=== PATIENT | female | born 1960 ===

== ENCOUNTER 2020-09-02 02:16 | Inpatient (IN) | payer MEDICARE ==
[2020-09-02] MEDS ORDERED: HALOPERIDOL LACTATE 5 MG/1 ML INJ IM PRN (03:22)
[2020-09-02] MEDS ORDERED: LORazepam 2 MG/ML VIAL IM PRN ×2 (03:23→10:00)
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
[2020-09-02] MEDS ORDERED: QUEtiapine 25 MG TAB PO SCH (10:00)
--- NOTE | 2020-09-02 10:20 | History and Physical Report ---
GP History & Physical - History of Present Illness Date of Examination: 09/02/20 Patient Problems: Current Active Problems Schizoaffective disorder, bipolar type (Acute) Medications and Allergies Allergies Allergy/AdvReac Type Severity Reaction Status Date / Time No Known Drug Allergies Allergy Unknown Verified 09/02/20 03:00 Home Medications Medication Instructions Recorded Confirmed Last Taken Type Atorvastatin 10 mg PO DAILY 09/02/20 09/02/20 Unknown History Divalproex ER [DepaKOTE ER] 500 mg PO BID 09/02/20 09/02/20 Unknown History LORazepam [Lorazepam] 2 mg PO TID PRN 09/02/20 09/02/20 Unknown History Levothyroxine [Synthroid] 75 mcg PO QAM 09/02/20 09/02/20 Unknown History Sodium Chloride 1 gm PO DAILY 09/02/20 09/02/20 Unknown History amLODIPine [Norvasc] 5 mg PO DAILY 09/02/20 09/02/20 Unknown History haloperidoL [Haldol] 5 mg PO BID 09/02/20 09/02/20 Unknown History risperiDONE [Risperdal] 3 mg PO BID 09/02/20 09/02/20 Unknown History Active Meds: Active Medications Haloperidol (Haloperidol 2 Mg Tab) 2 mg PO BID [facility] Haloperidol Lactate (Haloperidol Lactate 5 Mg/1 Ml Inj) 5 mg IM Q6H PRN PRN Reason: Agitation Lorazepam (Lorazepam 2 Mg/Ml Vial) 1 mg IM Q12HR PRN PRN Reason: Anxiety Nicotine (Nicotine 21 Mg/24 Hr Patch) 21 mg TD QDAY [facility] Quetiapine Fumarate (Quetiapine 25 Mg Tab) 100 mg PO BID [facility] Trazodone HCl (Trazodone 50 Mg Tab) 50 mg PO QHS [facility] Valproic Acid (Valproic Acid 250 Mg/5 Ml Oral Liqd) 250 mg PO BID [facility] Results - Results Labs/Vitals: Laboratory Last Values POC Glucose 92 mg/dL (70-105) 09/02/20 04:57 Last Vital Signs Temp 98.4 F 09/02/20 04:55 Pulse 82 09/02/20 04:55 Resp 20 09/02/20 04:55 BP 156/86 09/02/20 04:55 Pulse Ox 93 09/02/20 04:55 Physical Examination - Constitutional Vitals: Vital Signs Temp Pulse Resp BP Pulse Ox 98.4 F 82 20 156/86 93 09/02/20 04:55 09/02/20 04:55 09/02/20 04:55 09/02/20 04:55 09/02/20 04:55 Temperature -Last 24 Hours Temperature 98.4 F Mental Status Exam - Vital signs Last Vital Signs Temp 98.4 F 09/02/20 04:55 Pulse 82 09/02/20 04:55 Resp 20 09/02/20 04:55 BP 156/86 09/02/20 04:55 Pulse Ox 93 09/02/20 04:55 Physician Certification - Certification Statement Physician Certification Statement: This is an acknowledgement statement that EMRE MOONEY is a 60 year old F who requires inpatient psychiatric admission for treatment which could reasonably be expected to improve the patient's condition for Estimated period of time patient will need to remain in the hospital: [ ] Plan for post-hospital care: [ ]
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
[2020-09-02] MEDS: HALOPERIDOL 2 MG TAB PO SCH ×3 (11:53→21:19)
[2020-09-02] MEDS: VALPROIC ACID 250 MG/5 ML ORAL LIQD PO SCH ×3 (12:08→21:18)
[2020-09-02] MEDS: NICOTINE 21 MG/24 HR PATCH TD SCH (12:08)
[2020-09-02] MEDS: traZODone 50 MG TAB PO SCH ×2 (21:03→21:19)
[2020-09-02] MEDS: QUEtiapine 100 MG TAB PO SCH (21:03)
--- NOTE | 2020-09-03 07:44 | Progress Note ---
Subjective Date of service: 09/03/20 Principal diagnosis: Schizoaffective disorder, bipolar type Subjective Comment: Psych Nurse: pt spent the evening in her room, came out for snack and went back to room afterward, pt is labile, irritable, pressured speech, disorganized observed talking to herself, she refused her medication, no distress noted, will continue to monitor for safety. Psych Progress MIss Fan seen in breakfast room, responded nicely to greetings but became irritably almost immediately, patient states she does not like to use spoon to eat, she would prefer a fork. Informed patient, spoon is preferred here over safety reasons. Also enouraged patients to take medicine, patient states she wont take it because she does not want me to black and white her out. She then became angry and started hitting her head with her hands before calming then. Patient then says she joseph take her medications. Reason for continuing acute inpatient psychiatric hospitalization; Acute manic phase, medication non compliant, needs stabilization. REVIEW OF SYSTEMS ROS cannot be reliably obtained from the patient due to her confusion. MENTAL STATUS EXAMINATION General Appearance and Behavior: Age appropriate, good hygiene, not wearing appropriate clothes, good eye contact, cooperative polite with questioning. Cooperation: Participating/engaged Psychomotor Behavior: Psychomotor agitation Mood: sad Affect and affective range: labile and dysthymic. Thought Process:Circumstantial, Illogical, Thought Content: Flight of ideas, Illogical, Grandiose, Speech: pressured, loud volume at times Intellectual Functioning: Average Suicidal Ideation: Denies SI Homicidal Ideation: Denies HIl Impulse Control: Impaired Insight and Judgment: Limited insight and judgment Memory: Normal, Attention: Divided attention impaired Orientation: Alert, oriented, Diagnoses: Assessment and Plan - Psychiatric problem (1) Schizoaffective disorder, bipolar type Current Visit: Yes Status: Acute F25.0 Treatment Plan Concern patient high dose Valproate causing her to be hyponatremic. Joseph start low dose, continue haldol and add Seroquel. Patient admitted for inpatient psychiatric evaluation, medication adjustment and close monitoring The patient's behavior, mood, sleep and appetite will be closely monitored. Patient enrolled in individual and group therapeutic sessions and encouraged to attend. Patient provided with a safe and structured environment. Patient's physical health needs will be addressed by the Hospitalist. Hospitalist Consulted Labs including CBC, CMP, Lipid profile and Hemoglobin A1C levels ordered for baseline reference Social Assessment will be completed and the Guard Supervisor will work with patient and family to ensure a suitable and safe disposition Medication adjustment will be made as clinically indicated Usual Wellness Jehovah'S Witness/Preservation: - Start Trazodone 50 mg po QHS & 50 mg po QHS PRN between 10 PM & 2 AM for insomnia - Start Melatonin 5 mg po QHS to promote circadian rhythm - Start [place]-3 for brain health, reduce impulsivity, and as adjunctive treatment for mood disorder, continue upon discharge given overall benefits. - Start B1 prophylaxis with 200 mg po for 5 days The patient agreed on the treatment plan, understood the risk, benefit, alternative treatment, potential consequence of no treatment, and gave informed consent. Initial Certification Inpatient psych services: I certify that the inpatient psychiatric services are required for treatment that could reasonably be expected to improve the patient's condition. Estimated days: 6 Post hospital care: primary care provider, psychiatric provider Assessment and Plan - Patient Problems (1) Schizoaffective disorder, bipolar type Current Visit: Yes Status: Acute Medications and Allergies Allergies Allergy/AdvReac Type Severity Reaction Status Date / Time No Known Drug Allergies Allergy Unknown Verified 09/02/20 03:00 Home Medications Medication Instructions Recorded Confirmed Last Taken Type Atorvastatin 10 mg PO DAILY 09/02/20 09/02/20 Unknown History Divalproex ER [DepaKOTE ER] 500 mg PO BID 09/02/20 09/02/20 Unknown History LORazepam [Lorazepam] 2 mg PO TID PRN 09/02/20 09/02/20 Unknown History Levothyroxine [Synthroid] 75 mcg PO QAM 09/02/20 09/02/20 Unknown History Sodium Chloride 1 gm PO DAILY 09/02/20 09/02/20 Unknown History amLODIPine [Norvasc] 5 mg PO DAILY 09/02/20 09/02/20 Unknown History haloperidoL [Haldol] 5 mg PO BID 09/02/20 09/02/20 Unknown History risperiDONE [Risperdal] 3 mg PO BID 09/02/20 09/02/20 Unknown History Active Meds: Active Medications Haloperidol (Haloperidol 2 Mg Tab) 2 mg PO BID [facility] Last Admin: 09/02/20 21:19 Dose: Not Given Documented by: Haloperidol Lactate (Haloperidol Lactate 5 Mg/1 Ml Inj) 5 mg IM Q6H PRN PRN Reason: Agitation Lorazepam (Lorazepam 2 Mg/Ml Vial) 1 mg IM Q12HR PRN PRN Reason: Anxiety Nicotine (Nicotine 21 Mg/24 Hr Patch) 21 mg TD QDAY [facility] Last Admin: 09/02/20 12:08 Dose: Not Given Documented by: Quetiapine Fumarate (Quetiapine 100 Mg Tab) 100 mg PO BID [facility] Last Admin: 09/02/20 21:03 Dose: 100 mg Documented by: Trazodone HCl (Trazodone 50 Mg Tab) 50 mg PO QHS [facility] Last Admin: 09/02/20 21:19 Dose: Not Given Documented by: Valproic Acid (Valproic Acid 250 Mg/5 Ml Oral Liqd) 250 mg PO BID [facility] Last Admin: 09/02/20 21:18 Dose: Not Given Documented by: Results - Results Labs/Vitals: Laboratory Last Values POC Glucose 92 mg/dL (70-105) 09/02/20 04:57 Last Vital Signs Temp 98.4 F 09/02/20 04:55 Pulse 82 09/02/20 04:55 Resp 20 09/02/20 04:55 BP 156/86 09/02/20 04:55 Pulse Ox 93 09/02/20 04:55
[2020-09-03] MEDS: QUEtiapine 100 MG TAB PO SCH ×2 (09:27→21:04)
[2020-09-03] MEDS: HALOPERIDOL 2 MG TAB PO SCH ×2 (09:28→21:04)
[2020-09-03] MEDS: VALPROIC ACID 250 MG/5 ML ORAL LIQD PO SCH ×2 (09:31→21:03)
[2020-09-03] MEDS: NICOTINE 21 MG/24 HR PATCH TD SCH (09:35)
--- NOTE | 2020-09-03 11:09 | Consultation ---
History of Present Illness - Reason for Consult Consult date: 09/03/20 medical consult Requesting physician: RAUL FARIA - History of Present Illness 60-year-old female patient with significant past medical history of schizophrenia was admitted to [facility] psych unit with history of medical noncompliance and disruptive behavior with acute psychosis, hospitalist service was requested for medical consult. Patient has history medical of hypertension, dyslipidemia and hypothyroidism on appropriate medications When I went to see and evaluate the patient, patient was very explosive, loud, cursing And fell down on the floor and rolling in the hallway. Unable to get any history,Unable to examine the patient Psych unit personal came immediately to calm her Patient is very agitated aggressive and psychotic Past History Past Medical History: hypertension, hyperlipidemia, hypothyroidism, other (Schizophrenia) Past Surgical History: No surgical history Social history: smoking. denies: alcohol abuse, prescription drug abuse Family history: no significant family history Medications and Allergies Allergies Allergy/AdvReac Type Severity Reaction Status Date / Time No Known Drug Allergies Allergy Unknown Verified 09/02/20 03:00 Home Medications Medication Instructions Recorded Confirmed Last Taken Type Atorvastatin 10 mg PO DAILY 09/02/20 09/02/20 Unknown History Divalproex ER [DepaKOTE ER] 500 mg PO BID 09/02/20 09/02/20 Unknown History LORazepam [Lorazepam] 2 mg PO TID PRN 09/02/20 09/02/20 Unknown History Levothyroxine [Synthroid] 75 mcg PO QAM 09/02/20 09/02/20 Unknown History Sodium Chloride 1 gm PO DAILY 09/02/20 09/02/20 Unknown History amLODIPine [Norvasc] 5 mg PO DAILY 09/02/20 09/02/20 Unknown History haloperidoL [Haldol] 5 mg PO BID 09/02/20 09/02/20 Unknown History risperiDONE [Risperdal] 3 mg PO BID 09/02/20 09/02/20 Unknown History Active Meds: Active Medications Haloperidol (Haloperidol 2 Mg Tab) 2 mg PO BID [facility] Last Admin: 09/03/20 09:28 Dose: 2 mg Documented by: Haloperidol Lactate (Haloperidol Lactate 5 Mg/1 Ml Inj) 5 mg IM Q6H PRN PRN Reason: Agitation Lorazepam (Lorazepam 2 Mg/Ml Vial) 1 mg IM Q12HR PRN PRN Reason: Anxiety Nicotine (Nicotine 21 Mg/24 Hr Patch) 21 mg TD QDAY [facility] Last Admin: 09/03/20 09:35 Dose: Not Given Documented by: Quetiapine Fumarate (Quetiapine 100 Mg Tab) 100 mg PO BID [facility] Last Admin: 09/03/20 09:27 Dose: 100 mg Documented by: Trazodone HCl (Trazodone 50 Mg Tab) 50 mg PO QHS [facility] Last Admin: 09/02/20 21:19 Dose: Not Given Documented by: Valproic Acid (Valproic Acid 250 Mg/5 Ml Oral Liqd) 250 mg PO BID [facility] Last Admin: 09/03/20 09:31 Dose: 250 mg Documented by: Review of Systems ROS unobtainable: due to mental status Exam - Physical Exam Narrative exam: Patient is very agitated and aggressive Loud and psychotic, explosive behavior, cursing Unable to perform complete physical exam - Constitutional Vitals: Temp Pulse Resp BP Pulse Ox 97.5 F L 67 18 135/87 95 09/03/20 08:38 09/03/20 08:38 09/03/20 08:38 09/03/20 08:38 09/03/20 08:38 Assessment and Plan --Schizophrenia/schizoaffective disorder; Management per psych --Hypothyroidism; Will resume home Synthroid medication And supportive care --Hypertension; Moderate control, resume amlodipine As needed oral hydralazine --Dyslipidemia; Will resume patient's home statin Low-cholesterol diet --DVT prophylaxis; SCDs While resting --Full CODE STATUS We will closely monitor the patient and adjust the management as needed Plan of care reviewed with the patient and her nurse Thank you for this consult, we will follow the patient along with you as needed Call us with questions and concerns
[2020-09-03] MEDS: traZODone 50 MG TAB PO SCH (21:04)
[2020-09-04 06:36] LABS: Basophils # (Auto) 0.1 K/mm3 (0.0-0.1); Basophils % (Auto) 1.6 % (0.0-1.8); Eosinophils # (Auto) 0.3 K/mm3 (0.0-0.4); Hematocrit 36.6 % (30.3-42.9); Hemoglobin 12.3 gm/dl (10.1-14.3); Lymphocytes % (Auto) 24.7 % (13.4-35.0); Mean Corpuscular HGB Conc 34 % (30-34); Mean Corpuscular Volume 85 fl (79-97); Monocytes # (Auto) 0.5 K/mm3 (0.0-0.8); Monocytes % (Auto) 6.7 % (0.0-7.3); Platelet Count 401 K/mm3 (140-440); Red Blood Count 4.32 M/mm3 (3.65-5.03); Red Cell Distribution Width 18.9 % (13.2-15.2)
[2020-09-04 06:59] LABS: Alanine Aminotransferase 16 units/L (7-56); Albumin 4.5 g/dL (3.9-5); BUN/Creatinine Ratio 19; Blood Urea Nitrogen 15 mg/dL (7-17); Calcium 8.9 mg/dL (8.4-10.2); Chol/HDL Ratio 2.22 %; HDL Cholesterol 85 mg/dL (40-59); Hemolysis Index 1; LDL Cholesterol,Direct 98 mg/dL (50-130)
--- NOTE | 2020-09-04 08:10 | Progress Note ---
Subjective Date of service: 09/04/20 Principal diagnosis: Schizoaffective disorder, bipolar type Subjective Comment: Per Nurse Note: During the evening the patient went between her room and the activity room. The other patient's doors had to be locked due to the patient going into other's rooms and taking their things. She talked to herself in her room and even when she was with others. She was labile and irritable. She presents as inpatient with multiple requests. She had a good appetite and was medication compliant. She wanted the heat turned up in her room and when staff explained to her that we had no control over the temp she became angry and cursed staff. Overnight the patient rested quietly until 0100. She was awake off and on and in and out of her room afterward. She requested coffee several times and has to be reoriented that she will have that after 7 am. Will continue to monitor patient for safety. The patient was seen today, she says she slept okay. Although the patient had some behavioral issues reported by nurse,The patient says her mood is "pretty g ood." She denies SI/HI or hallucinations of any kind. Reason for continuing acute inpatient psychiatric hospitalization: Acute manic phase, responding to internal stimuli, irritable, medication non compliant, needs stabilization. REVIEW OF SYSTEMS Constitutional: Negative for weight loss ENT: Negative for stridor Respiratory: Negative for cough or hemoptysis All other systems reviewed and are negative MENTAL STATUS EXAMINATION General Appearance and Behavior: Age appropriate, good hygiene, not wearing appropriate clothes, good eye contact, cooperative polite with questioning. Cooperation: Participating/engaged Psychomotor Behavior: Psychomotor agitation Mood: sad Affect and affective range: labile and dysthymic. Thought Process:Circumstantial, Illogical, Thought Content: Flight of ideas, Illogical, Grandiose, Speech: pressured, loud volume at times Intellectual Functioning: Average Suicidal Ideation: Denies SI Homicidal Ideation: Denies HIl Impulse Control: Impaired Insight and Judgment: Limited insight and judgment Memory: Normal, Attention: Divided attention impaired Orientation: Alert, oriented, Diagnoses: Assessment and Plan (1) Schizoaffective disorder, bipolar type Current Visit: Yes Status: Acute F25.0 Treatment Plan Patient admitted for inpatient psychiatric evaluation, medication adjustment and close monitoring The patient's behavior, mood, sleep and appetite will be closely monitored. Patient enrolled in individual and group therapeutic sessions and encouraged to attend. Patient provided with a safe and structured environment. Patient's physical health needs will be addressed by the Hospitalist. Hospitalist Consulted Labs including CBC, CMP, Lipid profile and Hemoglobin A1C levels ordered for baseline reference Valproic level 09/05 Social Assessment will be completed and the Social Insurance Adviser will work with patient and family to ensure a suitable and safe disposition Medication adjustment will be made as clinically indicated d/c home xanax, Start Klonopin 1mg po TID Increase Haldol 5mg po BID Increase Depakote 250mg po TID d/c Seroquel To prevent polypharmacy and withdrawal from shirt creaser and high dose of benzo use. Usual Wellness Restorationist/Preservation: - Start Trazodone 50 mg po QHS & 50 mg po QHS PRN between 10 PM & 2 AM for insomnia - Start Melatonin 5 mg po QHS to promote circadian rhythm - Start [place]-3 for brain health, reduce impulsivity, and as adjunctive treatment for mood disorder, continue upon discharge given overall benefits. - Start B1 prophylaxis with 200 mg po for 5 days The patient agreed on the treatment plan, understood the risk, benefit, alternative treatment, potential consequence of no treatment, and gave informed consent. Initial Certification Inpatient psych services: I certify that the inpatient psychiatric services are required for treatment that could reasonably be expected to improve the patient's condition. Estimated days: 6 Post hospital care: primary care provider, psychiatric provider Medications and Allergies Allergies Allergy/AdvReac Type Severity Reaction Status Date / Time No Known Drug Allergies Allergy Unknown Verified 09/02/20 03:00 Home Medications Medication Instructions Recorded Confirmed Last Taken Type Atorvastatin 10 mg PO DAILY 09/02/20 09/02/20 Unknown History Divalproex ER [DepaKOTE ER] 500 mg PO BID 09/02/20 09/02/20 Unknown History LORazepam [Lorazepam] 2 mg PO TID PRN 09/02/20 09/02/20 Unknown History Levothyroxine [Synthroid] 75 mcg PO QAM 09/02/20 09/02/20 Unknown History Sodium Chloride 1 gm PO DAILY 09/02/20 09/02/20 Unknown History amLODIPine [Norvasc] 5 mg PO DAILY 09/02/20 09/02/20 Unknown History haloperidoL [Haldol] 5 mg PO BID 09/02/20 09/02/20 Unknown History risperiDONE [Risperdal] 3 mg PO BID 09/02/20 09/02/20 Unknown History Active Meds: Active Medications Haloperidol (Haloperidol 2 Mg Tab) 2 mg PO BID [facility] Last Admin: 09/03/20 21:04 Dose: 2 mg Documented by: Haloperidol Lactate (Haloperidol Lactate 5 Mg/1 Ml Inj) 5 mg IM Q6H PRN PRN Reason: Agitation Lorazepam (Lorazepam 2 Mg/Ml Vial) 1 mg IM Q12HR PRN PRN Reason: Anxiety Nicotine (Nicotine 21 Mg/24 Hr Patch) 21 mg TD QDAY [facility] Last Admin: 09/03/20 09:35 Dose: Not Given Documented by: Quetiapine Fumarate (Quetiapine 100 Mg Tab) 100 mg PO BID [facility] Last Admin: 09/03/20 21:04 Dose: 100 mg Documented by: Trazodone HCl (Trazodone 50 Mg Tab) 50 mg PO QHS [facility] Last Admin: 09/03/20 21:04 Dose: 50 mg Documented by: Valproic Acid (Valproic Acid 250 Mg/5 Ml Oral Liqd) 250 mg PO BID [facility] Last Admin: 09/03/20 21:03 Dose: 250 mg Documented by: Results - Results Labs/Vitals: Laboratory Last Values WBC 8.1 K/mm3 (4.5-11.0) 09/04/20 06:03 RBC 4.32 M/mm3 (3.65-5.03) 09/04/20 06:03 Hgb 12.3 gm/dl (10.1-14.3) 09/04/20 06:03 Hct 36.6 % (30.3-42.9) 09/04/20 06:03 MCV 85 fl (79-97) 09/04/20 06:03 MCH 29 pg (28-32) 09/04/20 06:03 MCHC 34 % (30-34) 09/04/20 06:03 RDW 18.9 % (13.2-15.2) H 09/04/20 06:03 Plt Count 401 K/mm3 (140-440) 09/04/20 06:03 Lymph % (Auto) 24.7 % (13.4-35.0) 09/04/20 06:03 [place] % (Auto) 6.7 % (0.0-7.3) 09/04/20 06:03 Eos % (Auto) 4.0 % (0.0-4.3) 09/04/20 06:03 Baso % (Auto) 1.6 % (0.0-1.8) 09/04/20 06:03 Lymph # (Auto) 2.0 K/mm3 (1.2-5.4) 09/04/20 06:03 [place] # (Auto) 0.5 K/mm3 (0.0-0.8) 09/04/20 06:03 Eos # (Auto) 0.3 K/mm3 (0.0-0.4) 09/04/20 06:03 Baso # (Auto) 0.1 K/mm3 (0.0-0.1) 09/04/20 06:03 Seg Neutrophils % 63.0 % (40.0-70.0) 09/04/20 06:03 Seg Neutrophils # 5.1 K/mm3 (1.8-7.7) 09/04/20 06:03 Sodium 130 mmol/L (137-145) L 09/04/20 06:03 Potassium 4.5 mmol/L (3.6-5.0) 09/04/20 06:03 Chloride 89.4 mmol/L (98-107) L 09/04/20 06:03 Carbon Dioxide 33 mmol/L (22-30) H 09/04/20 06:03 Anion Gap 12 mmol/L 09/04/20 06:03 BUN 15 mg/dL (7-17) 09/04/20 06:03 Creatinine 0.8 mg/dL (0.6-1.2) 09/04/20 06:03 Estimated GFR > 60 ml/min 09/04/20 06:03 BUN/Creatinine Ratio 19 % 09/04/20 06:03 Glucose 83 mg/dL (65-100) 09/04/20 06:03 POC Glucose 92 mg/dL (70-105) 09/02/20 04:57 Hemoglobin A1c 5.6 % (4-6) 09/04/20 06:03 Calcium 8.9 mg/dL (8.4-10.2) 09/04/20 06:03 Total Bilirubin 0.20 mg/dL (0.1-1.2) 09/04/20 06:03 AST 23 units/L (5-40) 09/04/20 06:03 ALT 16 units/L (7-56) 09/04/20 06:03 Alkaline Phosphatase 90 units/L (35-129) 09/04/20 06:03 Total Protein 7.3 g/dL (6.3-8.2) 09/04/20 06:03 Albumin 4.5 g/dL (3.9-5) 09/04/20 06:03 Albumin/Globulin Ratio 1.6 % 09/04/20 06:03 Triglycerides 82 mg/dL (2-149) 09/04/20 06:03 Cholesterol 189 mg/dL (50-199) 09/04/20 06:03 LDL Cholesterol Direct 98 mg/dL (50-130) 09/04/20 06:03 HDL Cholesterol 85 mg/dL (40-59) H 09/04/20 06:03 Cholesterol/HDL Ratio 2.22 % 09/04/20 06:03 TSH 100.000 mlU/mL (0.270-4.200) H 09/04/20 06:03 Last Vital Signs Temp 97.9 F 09/03/20 20:53 Pulse 68 09/03/20 20:53 Resp 20 09/03/20 20:53 BP 148/80 09/03/20 20:53 Pulse Ox 95 09/03/20 20:53
[2020-09-04] MEDS ORDERED: ATORVASTATIN 10 MG PO SCH (10:00)
[2020-09-04] MEDS: SODIUM CHLORIDE 1 GM TAB PO SCH (10:05)
[2020-09-04] MEDS: HALOPERIDOL 5 MG TAB PO SCH ×2 (10:05→21:11)
[2020-09-04] MEDS: VALPROIC ACID 250 MG/5 ML ORAL LIQD PO SCH ×3 (10:05→21:11)
[2020-09-04] MEDS: amLODIPine 5 MG TAB PO SCH (10:05)
[2020-09-04] MEDS: LEVOTHYROXINE 75 MCG TAB PO SCH (10:05)
[2020-09-04] MEDS: clonazePAM 0.5 MG TAB PO SCH ×3 (10:05→21:11)
[2020-09-04] MEDS: NICOTINE 21 MG/24 HR PATCH TD SCH (10:11)
[2020-09-04] MEDS: traZODone 50 MG TAB PO SCH (21:11)
[2020-09-05] MEDS: VALPROIC ACID 250 MG/5 ML ORAL LIQD PO SCH ×4 (03:18→21:16)
[2020-09-05] MEDS: clonazePAM 0.5 MG TAB PO SCH ×3 (03:19→21:16)
[2020-09-05] MEDS: HALOPERIDOL 5 MG TAB PO SCH ×3 (03:20→21:16)
[2020-09-05] MEDS: traZODone 50 MG TAB PO SCH ×2 (03:21→21:16)
[2020-09-05] MEDS: LEVOTHYROXINE 75 MCG TAB PO SCH (07:06)
--- NOTE | 2020-09-05 09:01 | Progress Note ---
Subjective Date of service: 09/05/20 Principal diagnosis: Schizoaffective disorder, bipolar type Subjective Comment: Per Nurse Note: 0700 Pt. awake sitting on the by floor by the activity room, not speaking, angry and irritable. No acute distress noted. Pt. refused to sign form 1012- transfer to voluntary status. Will continue to monitor pt. The patient was seen today, she is standing at the window of the nurses station. She's irritable. She is asking about going home. The patient denies SI/HI or hallucinations of any kind. Reason for continuing acute inpatient psychiatric hospitalization: Acute manic phase, responding to internal stimuli, irritable, medication non compliant, needs stabilization. REVIEW OF SYSTEMS Constitutional: Negative for weight loss ENT: Negative for stridor Respiratory: Negative for cough or hemoptysis All other systems reviewed and are negative MENTAL STATUS EXAMINATION General Appearance and Behavior: Age appropriate, good hygiene, not wearing appropriate clothes, good eye contact, cooperative polite with questioning. Cooperation: Participating/engaged Psychomotor Behavior: Psychomotor agitation Mood: sad Affect and affective range: labile and dysthymic. Thought Proce ss:Circumstantial, Illogical, Thought Content: Flight of ideas, Illogical, Grandiose, Speech: pressured, loud volume at times Intellectual Functioning: Average Suicidal Ideation: Denies SI Homicidal Ideation: Denies HIl Impulse Control: Impaired Insight and Judgment: Limited insight and judgment Memory: Normal, Attention: Divided attention impaired Orientation: Alert, oriented, Assessment and Plan (1) Schizoaffective disorder, bipolar type Current Visit: Yes Status: Acute F25.0 Treatment Plan Patient admitted for inpatient psychiatric evaluation, medication adjustment and close monitoring The patient's behavior, mood, sleep and appetite will be closely monitored. Patient enrolled in individual and group therapeutic sessions and encouraged to attend. Patient provided with a safe and structured environment. Patient's physical health needs will be addressed by the Hospitalist. Hospitalist Consulted Labs including CBC, CMP, Lipid profile and Hemoglobin A1C levels ordered for baseline reference Valproic level 09/05 Social Assessment will be completed and the Death Surveys Coder will work with patient and family to ensure a suitable and safe disposition Medication adjustment will be made as clinically indicated d/c home xanax, Start Klonopin 1mg po TID yesterday Increase Haldol 5mg po BID yesterday Increase Depakote 250mg po TID yesterday (will adjust dose once valproic results.) d/c Seroquel yesterday To prevent polypharmacy and withdrawal from senior care and high dose of benzo use. Usual Wellness Hindu/Preservation: - Start Trazodone 50 mg po QHS & 50 mg po QHS PRN between 10 PM & 2 AM for insomnia - Start Melatonin 5 mg po QHS to promote circadian rhythm - Start [place]-3 for brain health, reduce impulsivity, and as adjunctive treatment for mood disorder, continue upon discharge given overall benefits. - Start B1 prophylaxis with 200 mg po for 5 days The patient agreed on the treatment plan, understood the risk, benefit, alternative treatment, potential consequence of no treatment, and gave informed consent. Estimated days: 6 Post hospital care: primary care provider, psychiatric provider Medications and Allergies Allergies Allergy/AdvReac Type Severity Reaction Status Date / Time No Known Drug Allergies Allergy Unknown Verified 09/02/20 03:00 Home Medications Medication Instructions Recorded Confirmed Last Taken Type Atorvastatin 10 mg PO DAILY 09/02/20 09/02/20 Unknown History Divalproex ER [DepaKOTE ER] 500 mg PO BID 09/02/20 09/02/20 Unknown History LORazepam [Lorazepam] 2 mg PO TID PRN 09/02/20 09/02/20 Unknown History Levothyroxine [Synthroid] 75 mcg PO QAM 09/02/20 09/02/20 Unknown History Sodium Chloride 1 gm PO DAILY 09/02/20 09/02/20 Unknown History amLODIPine [Norvasc] 5 mg PO DAILY 09/02/20 09/02/20 Unknown History haloperidoL [Haldol] 5 mg PO BID 09/02/20 09/02/20 Unknown History risperiDONE [Risperdal] 3 mg PO BID 09/02/20 09/02/20 Unknown History Active Meds: Active Medications Amlodipine Besylate (Amlodipine 5 Mg Tab) 5 mg PO DAILY [facility] Last Admin: 09/04/20 10:05 Dose: 5 mg Documented by: Atorvastatin Calcium (Atorvastatin 10 Mg Tab) 10 mg PO QHS [facility] Last Admin: 09/05/20 03:21 Dose: Not Given Documented by: Clonazepam (Clonazepam 0.5 Mg Tab) 1 mg PO TID [facility] Last Admin: 09/05/20 03:19 Dose: Not Given Documented by: Haloperidol (Haloperidol 5 Mg Tab) 5 mg PO BID [facility] Last Admin: 09/05/20 03:20 Dose: Not Given Documented by: Haloperidol Lactate (Haloperidol Lactate 5 Mg/1 Ml Inj) 5 mg IM Q6H PRN PRN Reason: Agitation Levothyroxine Sodium (Levothyroxine 75 Mcg Tab) 75 mcg PO 0600 [facility] Last Admin: 09/05/20 07:06 Dose: Not Given Documented by: Lorazepam (Lorazepam 2 Mg/Ml Vial) 1 mg IM Q12HR PRN PRN Reason: Anxiety Nicotine (Nicotine 21 Mg/24 Hr Patch) 21 mg TD QDAY [facility] Last Admin: 09/04/20 10:11 Dose: Not Given Documented by: Sodium Chloride (Sodium Chloride 1 Gm Tab) 1 gm PO DAILY [facility] Last Admin: 09/04/20 10:05 Dose: 1 gm Documented by: Trazodone HCl (Trazodone 50 Mg Tab) 50 mg PO QHS [facility] Last Admin: 09/05/20 03:21 Dose: Not Given Documented by: Valproic Acid (Valproic Acid 250 Mg/5 Ml Oral Liqd) 250 mg PO TID [facility] Last Admin: 09/05/20 03:18 Dose: Not Given Documented by: Results - Results Labs/Vitals: Laboratory Last Values WBC 8.1 K/mm3 (4.5-11.0) 09/04/20 06:03 RBC 4.32 M/mm3 (3.65-5.03) 09/04/20 06:03 Hgb 12.3 gm/dl (10.1-14.3) 09/04/20 06:03 Hct 36.6 % (30.3-42.9) 09/04/20 06:03 MCV 85 fl (79-97) 09/04/20 06:03 MCH 29 pg (28-32) 09/04/20 06:03 MCHC 34 % (30-34) 09/04/20 06:03 RDW 18.9 % (13.2-15.2) H 09/04/20 06:03 Plt Count 401 K/mm3 (140-440) 09/04/20 06:03 Lymph % (Auto) 24.7 % (13.4-35.0) 09/04/20 06:03 [place] % (Auto) 6.7 % (0.0-7.3) 09/04/20 06:03 Eos % (Auto) 4.0 % (0.0-4.3) 09/04/20 06:03 Baso % (Auto) 1.6 % (0.0-1.8) 09/04/20 06:03 Lymph # (Auto) 2.0 K/mm3 (1.2-5.4) 09/04/20 06:03 [place] # (Auto) 0.5 K/mm3 (0.0-0.8) 09/04/20 06:03 Eos # (Auto) 0.3 K/mm3 (0.0-0.4) 09/04/20 06:03 Baso # (Auto) 0.1 K/mm3 (0.0-0.1) 09/04/20 06:03 Seg Neutrophils % 63.0 % (40.0-70.0) 09/04/20 06:03 Seg Neutrophils # 5.1 K/mm3 (1.8-7.7) 09/04/20 06:03 Sodium 130 mmol/L (137-145) L 09/04/20 06:03 Potassium 4.5 mmol/L (3.6-5.0) 09/04/20 06:03 Chloride 89.4 mmol/L (98-107) L 09/04/20 06:03 Carbon Dioxide 33 mmol/L (22-30) H 09/04/20 06:03 Anion Gap 12 mmol/L 09/04/20 06:03 BUN 15 mg/dL (7-17) 09/04/20 06:03 Creatinine 0.8 mg/dL (0.6-1.2) 09/04/20 06:03 Estimated GFR > 60 ml/min 09/04/20 06:03 BUN/Creatinine Ratio 19 % 09/04/20 06:03 Glucose 83 mg/dL (65-100) 09/04/20 06:03 POC Glucose 92 mg/dL (70-105) 09/02/20 04:57 Hemoglobin A1c 5.6 % (4-6) 09/04/20 06:03 Calcium 8.9 mg/dL (8.4-10.2) 09/04/20 06:03 Total Bilirubin 0.20 mg/dL (0.1-1.2) 09/04/20 06:03 AST 23 units/L (5-40) 09/04/20 06:03 ALT 16 units/L (7-56) 09/04/20 06:03 Alkaline Phosphatase 90 units/L (35-129) 09/04/20 06:03 Total Protein 7.3 g/dL (6.3-8.2) 09/04/20 06:03 Albumin 4.5 g/dL (3.9-5) 09/04/20 06:03 Albumin/Globulin Ratio 1.6 % 09/04/20 06:03 Triglycerides 82 mg/dL (2-149) 09/04/20 06:03 Cholesterol 189 mg/dL (50-199) 09/04/20 06:03 LDL Cholesterol Direct 98 mg/dL (50-130) 09/04/20 06:03 HDL Cholesterol 85 mg/dL (40-59) H 09/04/20 06:03 Cholesterol/HDL Ratio 2.22 % 09/04/20 06:03 TSH 100.000 mlU/mL (0.270-4.200) H 09/04/20 06:03 Last Vital Signs Temp 98.4 F 09/04/20 08:41 Pulse 71 09/04/20 08:41 Resp 16 09/04/20 08:41 BP 131/76 09/04/20 08:41 Pulse Ox 98 09/04/20 08:41
[2020-09-05] MEDS: NICOTINE 21 MG/24 HR PATCH TD SCH (17:24)
[2020-09-05] MEDS: amLODIPine 5 MG TAB PO SCH (17:24)
[2020-09-05] MEDS: SODIUM CHLORIDE 1 GM TAB PO SCH (17:25)
[2020-09-06] MEDS: LEVOTHYROXINE 75 MCG TAB PO SCH (06:11)
--- NOTE | 2020-09-06 09:10 | Progress Note ---
Subjective Date of service: 09/06/20 Principal diagnosis: Schizoaffective disorder, bipolar type Subjective Comment: Per Nurse Note: pt has been asleep since the beginning of shift, refused medication , refused snack, allowed staff to check vital signs, vital signs stable, no distress noted, will continue to monitor for safety. 1710 PRN Ativan and Haldol given for aggressive behavior. Pt. banging on the glass window at the nurse's station, refusing to stop. Also yelling out loud and disrobing the Unit. The patient was seen today, she is lying in bed asleep. She denies hallucinations or SI/HI. She did not respond when asking her what had her upset yesterday. Reason for continuing acute inpatient psychiatric hospitalization: patient is aggressive at times, responding to internal stimuli, irritable, medication non compliant, needs stabilization. REVIEW OF SYSTEMS Constitutional: Negative for weight loss ENT: Negative for stridor Respiratory: Negative for cough or hemoptysis All other systems reviewed and are negative MENTAL STATUS EXAMINATION General Appearance and Behavior: Age appropriate, good hygiene, not wearing appropriate clothes, good eye contact, cooperative polite with questioning. Cooperation: Participating/engaged Psychomotor Behavior: Psychomotor agitation Mood: sad Affect and affective range: labile and dysthymic. Thought Process:Circumstantial, Illogical, Thought Content: Flight of ideas, Illogical, Grandiose, Speech: pressured, loud volume at times Intellectual Functioning: Average Suicidal Ideation: Denies SI Homicidal Ideation: Denies HIl Impulse Control: Impaired Insight and Judgment: Limited insight and judgment Memory: Normal, Attention: Divided attention impaired Orientation: Alert, oriented, Assessment and Plan (1) Schizoaffective disorder, bipolar type Current Visit: Yes Status: Acute F25.0 Treatment Plan Patient admitted for inpatient psychiatric evaluation, medication adjustment and close monitoring The patient's behavior, mood, sleep and appetite will be closely monitored. Patient enrolled in individual and group therapeutic sessions and encouraged to attend. Patient provided with a safe and structured environment. Patient's physical health needs will be addressed by the Hospitalist. Hospitalist Consulted Labs including CBC, CMP, Lipid profile and Hemoglobin A1C levels ordered for baseline reference Valproic level 09/05 (not drawn yet) Social Assessment will be completed and the Exterminator Helper will work with patient and family to ensure a suitable and safe disposition Medication adjustment will be made as clinically indicated Continue Haldol 5mg po BID Increase Depakote 500mg po BID Usual Wellness Confucianism/Preservation: - Start Trazodone 50 mg po QHS & 50 mg po QHS PRN between 10 PM & 2 AM for insomnia - Start Melatonin 5 mg po QHS to promote circadian rhythm - Start [place]-3 for brain health, reduce impulsivity, and as adjunctive treatment for mood disorder, continue upon discharge given overall benefits. - Start B1 prophylaxis with 200 mg po for 5 days The patient agreed on the treatment plan, understood the risk, benefit, alternative treatment, potential consequence of no treatment, and gave informed consent. Estimated days: 6 Post hospital care: primary care provider, psychiatric provider Medications and Allergies Allergies Allergy/AdvReac Type Severity Reaction Status Date / Time No Known Drug Allergies Allergy Unknown Verified 09/02/20 03:00 Home Medications Medication Instructions Recorded Confirmed Last Taken Type Atorvastatin 10 mg PO DAILY 09/02/20 09/02/20 Unknown History Divalproex ER [DepaKOTE ER] 500 mg PO BID 09/02/20 09/02/20 Unknown History LORazepam [Lorazepam] 2 mg PO TID PRN 09/02/20 09/02/20 Unknown History Levothyroxine [Synthroid] 75 mcg PO QAM 09/02/20 09/02/20 Unknown History Sodium Chloride 1 gm PO DAILY 09/02/20 09/02/20 Unknown History amLODIPine [Norvasc] 5 mg PO DAILY 09/02/20 09/02/20 Unknown History haloperidoL [Haldol] 5 mg PO BID 09/02/20 09/02/20 Unknown History risperiDONE [Risperdal] 3 mg PO BID 09/02/20 09/02/20 Unknown History Active Meds: Active Medications Amlodipine Besylate (Amlodipine 5 Mg Tab) 5 mg PO DAILY [facility] Last Admin: 09/05/20 17:24 Dose: Not Given Documented by: Atorvastatin Calcium (Atorvastatin 10 Mg Tab) 10 mg PO QHS [facility] Last Admin: 09/05/20 21:16 Dose: Not Given Documented by: Clonazepam (Clonazepam 0.5 Mg Tab) 1 mg PO TID [facility] Last Admin: 09/05/20 21:16 Dose: Not Given Documented by: Haloperidol (Haloperidol 5 Mg Tab) 5 mg PO BID [facility] Last Admin: 09/05/20 21:16 Dose: Not Given Documented by: Haloperidol Lactate (Haloperidol Lactate 5 Mg/1 Ml Inj) 5 mg IM Q6H PRN PRN Reason: Agitation Last Admin: 09/05/20 17:10 Dose: 5 mg Documented by: Levothyroxine Sodium (Levothyroxine 75 Mcg Tab) 75 mcg PO 0600 [facility] Last Admin: 09/06/20 06:11 Dose: Not Given Documented by: Lorazepam (Lorazepam 2 Mg/Ml Vial) 1 mg IM Q12HR PRN PRN Reason: Anxiety Last Admin: 09/05/20 17:26 Dose: 1 mg Documented by: Nicotine (Nicotine 21 Mg/24 Hr Patch) 21 mg TD QDAY [facility] Last Admin: 09/05/20 17:24 Dose: Not Given Documented by: Sodium Chloride (Sodium Chloride 1 Gm Tab) 1 gm PO DAILY [facility] Last Admin: 09/05/20 17:25 Dose: Not Given Documented by: Trazodone HCl (Trazodone 50 Mg Tab) 50 mg PO QHS [facility] Last Admin: 09/05/20 21:16 Dose: Not Given Documented by: Valproic Acid (Valproic Acid 250 Mg/5 Ml Oral Liqd) 250 mg PO TID [facility] Last Admin: 09/05/20 21:16 Dose: Not Given Documented by: Results - Results Labs/Vitals: Laboratory Last Values WBC 8.1 K/mm3 (4.5-11.0) 09/04/20 06:03 RBC 4.32 M/mm3 (3.65-5.03) 09/04/20 06:03 Hgb 12.3 gm/dl (10.1-14.3) 09/04/20 06:03 Hct 36.6 % (30.3-42.9) 09/04/20 06:03 MCV 85 fl (79-97) 09/04/20 06:03 MCH 29 pg (28-32) 09/04/20 06:03 MCHC 34 % (30-34) 09/04/20 06:03 RDW 18.9 % (13.2-15.2) H 09/04/20 06:03 Plt Count 401 K/mm3 (140-440) 09/04/20 06:03 Lymph % (Auto) 24.7 % (13.4-35.0) 09/04/20 06:03 [place] % (Auto) 6.7 % (0.0-7.3) 09/04/20 06:03 Eos % (Auto) 4.0 % (0.0-4.3) 09/04/20 06:03 Baso % (Auto) 1.6 % (0.0-1.8) 09/04/20 06:03 Lymph # (Auto) 2.0 K/mm3 (1.2-5.4) 09/04/20 06:03 [place] # (Auto) 0.5 K/mm3 (0.0-0.8) 09/04/20 06:03 Eos # (Auto) 0.3 K/mm3 (0.0-0.4) 09/04/20 06:03 Baso # (Auto) 0.1 K/mm3 (0.0-0.1) 09/04/20 06:03 Seg Neutrophils % 63.0 % (40.0-70.0) 09/04/20 06:03 Seg Neutrophils # 5.1 K/mm3 (1.8-7.7) 09/04/20 06:03 Sodium 130 mmol/L (137-145) L 09/04/20 06:03 Potassium 4.5 mmol/L (3.6-5.0) 09/04/20 06:03 Chloride 89.4 mmol/L (98-107) L 09/04/20 06:03 Carbon Dioxide 33 mmol/L (22-30) H 09/04/20 06:03 Anion Gap 12 mmol/L 09/04/20 06:03 BUN 15 mg/dL (7-17) 09/04/20 06:03 Creatinine 0.8 mg/dL (0.6-1.2) 09/04/20 06:03 Estimated GFR > 60 ml/min 09/04/20 06:03 BUN/Creatinine Ratio 19 % 09/04/20 06:03 Glucose 83 mg/dL (65-100) 09/04/20 06:03 POC Glucose 92 mg/dL (70-105) 09/02/20 04:57 Hemoglobin A1c 5.6 % (4-6) 09/04/20 06:03 Calcium 8.9 mg/dL (8.4-10.2) 09/04/20 06:03 Total Bilirubin 0.20 mg/dL (0.1-1.2) 09/04/20 06:03 AST 23 units/L (5-40) 09/04/20 06:03 ALT 16 units/L (7-56) 09/04/20 06:03 Alkaline Phosphatase 90 units/L (35-129) 09/04/20 06:03 Total Protein 7.3 g/dL (6.3-8.2) 09/04/20 06:03 Albumin 4.5 g/dL (3.9-5) 09/04/20 06:03 Albumin/Globulin Ratio 1.6 % 09/04/20 06:03 Triglycerides 82 mg/dL (2-149) 09/04/20 06:03 Cholesterol 189 mg/dL (50-199) 09/04/20 06:03 LDL Cholesterol Direct 98 mg/dL (50-130) 09/04/20 06:03 HDL Cholesterol 85 mg/dL (40-59) H 09/04/20 06:03 Cholesterol/HDL Ratio 2.22 % 09/04/20 06:03 TSH 100.000 mlU/mL (0.270-4.200) H 09/04/20 06:03 Last Vital Signs Temp 98.4 F 09/04/20 08:41 Pulse 69 09/05/20 22:00 Resp 18 09/05/20 22:00 BP 118/62 09/05/20 22:00 Pulse Ox 92 09/05/20 22:00
[2020-09-06] MEDS: clonazePAM 0.5 MG TAB PO SCH ×3 (10:25→20:54)
[2020-09-06] MEDS: SODIUM CHLORIDE 1 GM TAB PO SCH (10:26)
[2020-09-06] MEDS: VALPROIC ACID 250 MG/5 ML ORAL LIQD PO SCH ×3 (10:26→21:08)
[2020-09-06] MEDS: HALOPERIDOL 5 MG TAB PO SCH ×2 (10:27→21:08)
[2020-09-06] MEDS: NICOTINE 21 MG/24 HR PATCH TD SCH (10:28)
[2020-09-06] MEDS: amLODIPine 5 MG TAB PO SCH (10:46)
--- NOTE | 2020-09-06 14:51 | Progress Note ---
Assessment and Plan Assessment and plan: --Hypothyroidism; Will resume home Synthroid medication And supportive care --Hypertension; 115/76 Well-controlled, continue current antihypertensives As needed oral hydralazine --Dyslipidemia; Continue atorvastatin 10 mg daily --Schizophrenia/schizoaffective disorder; Patient is little loud and aggressive management per psych --DVT prophylaxis; SCDs While resting --Full CODE STATUS We will closely monitor the patient and adjust the management as needed Plan of care reviewed with the patient and her nurse we will follow the patient along with you as needed Call us with questions and concerns History Interval history: I have seen and examined the patient in the activity room today Patient is cheerful however is loud and aggressive Wants to go home Did not let me examined her Nurse did not have any new issues Vital signs reviewed Hospitalist Physical - Physical exam Narrative exam: Patient refused physical examination - Constitutional Vitals: Temp Pulse Resp BP Pulse Ox 97.9 F 72 16 115/76 93 09/06/20 09:13 09/06/20 10:46 09/06/20 09:13 09/06/20 10:46 09/06/20 09:13 Results - Labs CBC & Chem 7: 09/04/20 06:03 09/04/20 06:03 Labs: Laboratory Last Values WBC 8.1 K/mm3 (4.5-11.0) 09/04/20 06:03 RBC 4.32 M/mm3 (3.65-5.03) 09/04/20 06:03 Hgb 12.3 gm/dl (10.1-14.3) 09/04/20 06:03 Hct 36.6 % (30.3-42.9) 09/04/20 06:03 MCV 85 fl (79-97) 09/04/20 06:03 MCH 29 pg (28-32) 09/04/20 06:03 MCHC 34 % (30-34) 09/04/20 06:03 RDW 18.9 % (13.2-15.2) H 09/04/20 06:03 Plt Count 401 K/mm3 (140-440) 09/04/20 06:03 Lymph % (Auto) 24.7 % (13.4-35.0) 09/04/20 06:03 [place] % (Auto) 6.7 % (0.0-7.3) 09/04/20 06:03 Eos % (Auto) 4.0 % (0.0-4.3) 09/04/20 06:03 Baso % (Auto) 1.6 % (0.0-1.8) 09/04/20 06:03 Lymph # (Auto) 2.0 K/mm3 (1.2-5.4) 09/04/20 06:03 [place] # (Auto) 0.5 K/mm3 (0.0-0.8) 09/04/20 06:03 Eos # (Auto) 0.3 K/mm3 (0.0-0.4) 09/04/20 06:03 Baso # (Auto) 0.1 K/mm3 (0.0-0.1) 09/04/20 06:03 Seg Neutrophils % 63.0 % (40.0-70.0) 09/04/20 06:03 Seg Neutrophils # 5.1 K/mm3 (1.8-7.7) 09/04/20 06:03 Sodium 130 mmol/L (137-145) L 09/04/20 06:03 Potassium 4.5 mmol/L (3.6-5.0) 09/04/20 06:03 Chloride 89.4 mmol/L (98-107) L 09/04/20 06:03 Carbon Dioxide 33 mmol/L (22-30) H 09/04/20 06:03 Anion Gap 12 mmol/L 09/04/20 06:03 BUN 15 mg/dL (7-17) 09/04/20 06:03 Creatinine 0.8 mg/dL (0.6-1.2) 09/04/20 06:03 Estimated GFR > 60 ml/min 09/04/20 06:03 BUN/Creatinine Ratio 19 % 09/04/20 06:03 Glucose 83 mg/dL (65-100) 09/04/20 06:03 POC Glucose 92 mg/dL (70-105) 09/02/20 04:57 Hemoglobin A1c 5.6 % (4-6) 09/04/20 06:03 Calcium 8.9 mg/dL (8.4-10.2) 09/04/20 06:03 Total Bilirubin 0.20 mg/dL (0.1-1.2) 09/04/20 06:03 AST 23 units/L (5-40) 09/04/20 06:03 ALT 16 units/L (7-56) 09/04/20 06:03 Alkaline Phosphatase 90 units/L (35-129) 09/04/20 06:03 Total Protein 7.3 g/dL (6.3-8.2) 09/04/20 06:03 Albumin 4.5 g/dL (3.9-5) 09/04/20 06:03 Albumin/Globulin Ratio 1.6 % 09/04/20 06:03 Triglycerides 82 mg/dL (2-149) 09/04/20 06:03 Cholesterol 189 mg/dL (50-199) 09/04/20 06:03 LDL Cholesterol Direct 98 mg/dL (50-130) 09/04/20 06:03 HDL Cholesterol 85 mg/dL (40-59) H 09/04/20 06:03 Cholesterol/HDL Ratio 2.22 % 09/04/20 06:03 TSH 100.000 mlU/mL (0.270-4.200) H 09/04/20 06:03 Don/IV: Voiding Method Toilet Active Medications - Current Medications Current Medications: Generic Name Dose Route Start Last Admin Trade Name Freq PRN Reason Stop Dose Admin Amlodipine Besylate 5 mg 09/04/20 10:00 09/06/20 10:46 Amlodipine 5 Mg Tab PO 5 mg DAILY [facility]ARMEN Administration Atorvastatin Calcium 10 mg 09/04/20 22:00 09/05/20 21:16 Atorvastatin 10 Mg Tab PO Not Given QHS KARMEN Clonazepam 1 mg 09/04/20 09:00 09/06/20 14:22 Clonazepam 0.5 Mg Tab PO 1 mg TID KARMEN Administration Haloperidol 5 mg 09/04/20 10:00 09/06/20 10:27 Haloperidol 5 Mg Tab PO 5 mg BID KARMEN Administration Haloperidol Lactate 5 mg 09/02/20 03:22 09/05/20 17:10 Haloperidol Lactate 5 Mg/1 Ml Inj IM 5 mg Q6H PRN Administration Agitation Levothyroxine Sodium 75 mcg 09/04/20 10:00 09/06/20 06:11 Levothyroxine 75 Mcg Tab PO Not Given 0600 KARMEN Lorazepam 1 mg 09/02/20 10:00 09/05/20 17:26 Lorazepam 2 Mg/Ml Vial IM 1 mg Q12HR PRN Administration Anxiety Nicotine 21 mg 09/02/20 10:00 09/06/20 10:28 Nicotine 21 Mg/24 Hr Patch TD 21 mg QDAY [facility]ARMEN Administration Sodium Chloride 1 gm 09/04/20 10:00 09/06/20 10:26 Sodium Chloride 1 Gm Tab PO 1 gm DAILY [facility]ARMEN Administration Trazodone HCl 50 mg 09/02/20 22:00 09/05/20 21:16 Trazodone 50 Mg Tab PO Not Given QHS KARMEN Valproic Acid 500 mg 09/06/20 10:00 09/06/20 10:26 Valproic Acid 250 Mg/5 Ml Oral Liqd PO 500 mg BID KARMEN Administration
[2020-09-06] MEDS: traZODone 50 MG TAB PO SCH (21:08)
[2020-09-07] MEDS: LEVOTHYROXINE 75 MCG TAB PO SCH (06:32)
--- NOTE | 2020-09-07 08:46 | Progress Note ---
Subjective Date of service: 09/07/20 Principal diagnosis: Schizoaffective disorder, bipolar type Subjective Comment: Per Nurse Note: Last evening the patient walked around the unit manipulating staff. She tries to get coffee from different staff after being told we don't serve caffeine at night. She tries to make deals about taking her medication if she gets coffee. She denies si/hi/ah/vh. She continues to have difficulty focusing on one thought. She presents with flight of ideas. Her appetite is good. She was medication compliant except she refused liquid depakote. She states she will take it if it's in a pill. The patient was seen today, she is sitting off to herself. She states to me "I don't want to stay another day." She starts sobbing and begging to go home. The patient says "I hate it here. It's cold and I hurt in that room." She says "please let me get out of here." The patient denies hallucinations or SI/HI. Reason for continuing acute inpatient psychiatric hospitalization: patient is aggressive at times, responding to internal stimuli, irritable, medication non compliant, needs stabilization. REVIEW OF SYSTEMS Constitutional: Negative for weight loss ENT: Negative for stridor Respiratory: Negative for cough or hemoptysis All other systems reviewed and are negative MENTAL STATUS EXAMINATION General Appearance and Behavior: Age appropriate, good hygiene, not wearing appropriate clothes, good eye contact, cooperative polite with questioning. Cooperation: Participating/engaged Psychomotor Behavior: Psychomotor agitation Mood: sad Affect and affective range: labile and dysthymic. Thought Process:Circumstantial, Illogical, Thought Content: Flight of ideas, Illogical, Grandiose, Speech: pressured, loud volume at times Intellectual Functioning: Average Suicidal Ideation: Denies SI Homicidal Ideation: Denies HIl Impulse Control: Impaired Insight and Judgment: Limited insight and judgment Memory: Normal, Attention: Divided attention impaired Orientation: Alert, oriented, Assessment and Plan (1) Schizoaffective disorder, bipolar type Current Visit: Yes Status: Acute F25.0 Treatment Plan Patient admitted for inpatient psychiatric evaluation, medication adjustment and close monitoring The patient's behavior, mood, sleep and appetite will be closely monitored. Patient enrolled in individual and group therapeutic sessions and encouraged to attend. Patient provided with a safe and structured environment. Patient's physical health needs will be addressed by the Hospitalist. Hospitalist Consulted Labs including CBC, CMP, Lipid profile and Hemoglobin A1C levels ordered for baseline reference Valproic level 09/05 (not drawn yet) Social Assessment will be completed and the Ibm Websphere Commerce Developer will work with patient and family to ensure a suitable and safe disposition Medication adjustment will be made as clinically indicated Continue Haldol 5mg po BID changed to pills Depakote 500mg po BID (pt does not like the liquid) Usual Wellness Gnosticist/Preservation: - Start Trazodone 50 mg po QHS & 50 mg po QHS PRN between 10 PM & 2 AM for insomnia - Start Melatonin 5 mg po QHS to promote circadian rhythm - Start [place]-3 for brain health, reduce impulsivity, and as adjunctive treatment for mood disorder, continue upon discharge given overall benefits. - Start B1 prophylaxis with 200 mg po for 5 days The patient agreed on the treatment plan, understood the risk, benefit, alternative treatment, potential consequence of no treatment, and gave informed consent. Estimated days: 2 Post hospital care: primary care provider, psychiatric provider Medications and Allergies Allergies Allergy/AdvReac Type Severity Reaction Status Date / Time No Known Drug Allergies Allergy Unknown Verified 09/02/20 03:00 Home Medications Medication Instructions Recorded Confirmed Last Taken Type Atorvastatin 10 mg PO DAILY 09/02/20 09/02/20 Unknown History Divalproex ER [DepaKOTE ER] 500 mg PO BID 09/02/20 09/02/20 Unknown History LORazepam [Lorazepam] 2 mg PO TID PRN 09/02/20 09/02/20 Unknown History Levothyroxine [Synthroid] 75 mcg PO QAM 09/02/20 09/02/20 Unknown History Sodium Chloride 1 gm PO DAILY 09/02/20 09/02/20 Unknown History amLODIPine [Norvasc] 5 mg PO DAILY 09/02/20 09/02/20 Unknown History haloperidoL [Haldol] 5 mg PO BID 09/02/20 09/02/20 Unknown History risperiDONE [Risperdal] 3 mg PO BID 09/02/20 09/02/20 Unknown History Active Meds: Active Medications Amlodipine Besylate (Amlodipine 5 Mg Tab) 5 mg PO DAILY [facility] Last Admin: 09/06/20 10:46 Dose: 5 mg Documented by: Atorvastatin Calcium (Atorvastatin 10 Mg Tab) 10 mg PO QHS [facility] Last Admin: 09/06/20 21:08 Dose: 10 mg Documented by: Clonazepam (Clonazepam 0.5 Mg Tab) 1 mg PO TID [facility] Last Admin: 09/06/20 20:54 Dose: 1 mg Documented by: Haloperidol (Haloperidol 5 Mg Tab) 5 mg PO BID [facility] Last Admin: 09/06/20 21:08 Dose: 5 mg Documented by: Haloperidol Lactate (Haloperidol Lactate 5 Mg/1 Ml Inj) 5 mg IM Q6H PRN PRN Reason: Agitation Last Admin: 09/05/20 17:10 Dose: 5 mg Documented by: Levothyroxine Sodium (Levothyroxine 75 Mcg Tab) 75 mcg PO 0600 [facility] Last Admin: 09/07/20 06:32 Dose: 75 mcg Documented by: Lorazepam (Lorazepam 2 Mg/Ml Vial) 1 mg IM Q12HR PRN PRN Reason: Anxiety Last Admin: 09/05/20 17:26 Dose: 1 mg Documented by: Nicotine (Nicotine 21 Mg/24 Hr Patch) 21 mg TD QDAY [facility] Last Admin: 09/06/20 10:28 Dose: 21 mg Documented by: Sodium Chloride (Sodium Chloride 1 Gm Tab) 1 gm PO DAILY [facility] Last Admin: 09/06/20 10:26 Dose: 1 gm Documented by: Trazodone HCl (Trazodone 50 Mg Tab) 50 mg PO QHS [facility] Last Admin: 09/06/20 21:08 Dose: 50 mg Documented by: Valproic Acid (Valproic Acid 250 Mg/5 Ml Oral Liqd) 500 mg PO BID [facility] Last Admin: 09/06/20 21:08 Dose: Not Given Documented by: Results - Results Labs/Vitals: Laboratory Last Values WBC 8.1 K/mm3 (4.5-11.0) 09/04/20 06:03 RBC 4.32 M/mm3 (3.65-5.03) 09/04/20 06:03 Hgb 12.3 gm/dl (10.1-14.3) 09/04/20 06:03 Hct 36.6 % (30.3-42.9) 09/04/20 06:03 MCV 85 fl (79-97) 09/04/20 06:03 MCH 29 pg (28-32) 09/04/20 06:03 MCHC 34 % (30-34) 09/04/20 06:03 RDW 18.9 % (13.2-15.2) H 09/04/20 06:03 Plt Count 401 K/mm3 (140-440) 09/04/20 06:03 Lymph % (Auto) 24.7 % (13.4-35.0) 09/04/20 06:03 [place] % (Auto) 6.7 % (0.0-7.3) 09/04/20 06:03 Eos % (Auto) 4.0 % (0.0-4.3) 09/04/20 06:03 Baso % (Auto) 1.6 % (0.0-1.8) 09/04/20 06:03 Lymph # (Auto) 2.0 K/mm3 (1.2-5.4) 09/04/20 06:03 [place] # (Auto) 0.5 K/mm3 (0.0-0.8) 09/04/20 06:03 Eos # (Auto) 0.3 K/mm3 (0.0-0.4) 09/04/20 06:03 Baso # (Auto) 0.1 K/mm3 (0.0-0.1) 09/04/20 06:03 Seg Neutrophils % 63.0 % (40.0-70.0) 09/04/20 06:03 Seg Neutrophils # 5.1 K/mm3 (1.8-7.7) 09/04/20 06:03 Sodium 130 mmol/L (137-145) L 09/04/20 06:03 Potassium 4.5 mmol/L (3.6-5.0) 09/04/20 06:03 Chloride 89.4 mmol/L (98-107) L 09/04/20 06:03 Carbon Dioxide 33 mmol/L (22-30) H 09/04/20 06:03 Anion Gap 12 mmol/L 09/04/20 06:03 BUN 15 mg/dL (7-17) 09/04/20 06:03 Creatinine 0.8 mg/dL (0.6-1.2) 09/04/20 06:03 Estimated GFR > 60 ml/min 09/04/20 06:03 BUN/Creatinine Ratio 19 % 09/04/20 06:03 Glucose 83 mg/dL (65-100) 09/04/20 06:03 POC Glucose 92 mg/dL (70-105) 09/02/20 04:57 Hemoglobin A1c 5.6 % (4-6) 09/04/20 06:03 Calcium 8.9 mg/dL (8.4-10.2) 09/04/20 06:03 Total Bilirubin 0.20 mg/dL (0.1-1.2) 09/04/20 06:03 AST 23 units/L (5-40) 09/04/20 06:03 ALT 16 units/L (7-56) 09/04/20 06:03 Alkaline Phosphatase 90 units/L (35-129) 09/04/20 06:03 Total Protein 7.3 g/dL (6.3-8.2) 09/04/20 06:03 Albumin 4.5 g/dL (3.9-5) 09/04/20 06:03 Albumin/Globulin Ratio 1.6 % 09/04/20 06:03 Triglycerides 82 mg/dL (2-149) 09/04/20 06:03 Cholesterol 189 mg/dL (50-199) 09/04/20 06:03 LDL Cholesterol Direct 98 mg/dL (50-130) 09/04/20 06:03 HDL Cholesterol 85 mg/dL (40-59) H 09/04/20 06:03 Cholesterol/HDL Ratio 2.22 % 09/04/20 06:03 TSH 100.000 mlU/mL (0.270-4.200) H 09/04/20 06:03 Last Vital Signs Temp 98.0 F 09/06/20 22:00 Pulse 63 09/06/20 22:00 Resp 18 09/06/20 22:00 BP 135/90 09/06/20 22:00 Pulse Ox 97 09/06/20 22:00
[2020-09-07] MEDS: HALOPERIDOL 5 MG TAB PO SCH ×3 (10:30→23:59)
[2020-09-07] MEDS: clonazePAM 0.5 MG TAB PO SCH ×4 (10:30→23:57)
[2020-09-07] MEDS: DIVALPROEX DR 500 MG TAB PO SCH ×3 (10:30→23:58)
[2020-09-07] MEDS: amLODIPine 5 MG TAB PO SCH (10:30)
[2020-09-07] MEDS: SODIUM CHLORIDE 1 GM TAB PO SCH (10:31)
[2020-09-07] MEDS: NICOTINE 21 MG/24 HR PATCH TD SCH (10:31)
[2020-09-07] MEDS: traZODone 50 MG TAB PO SCH (22:34)
[2020-09-08] MEDS: LEVOTHYROXINE 75 MCG TAB PO SCH (05:45)
--- NOTE | 2020-09-08 09:41 | Progress Note ---
Subjective Date of service: 09/08/20 Principal diagnosis: Schizoaffective disorder, bipolar type Subjective Comment: Per Nurse Note: Last evening the patient isolated to her room. She had little interaction with others and presented as sleepy. She rested/slept throughout the evening. She denies si/hi/ah/vh but can be overheard talking to herself. Her appetite is good and she manipulates to drink multiple cups of coffee. She was angry at being awakened to get her nighttime medications and refused all of them after yelling at staff. Overnight she rested quietly. She was awake briefly and returned to sleep. She has been awake since around 6 am wanting coffee. Will continue to monitor patie nt for safety. The patient was seen today, she is sitting on the floor in front of the nurses station. She whiny and is asking to go home. The patient denies SI/HI, stating "I wouldn't hurt myself or nobody else." She denies hallucinations. Reason for continuing acute inpatient psychiatric hospitalization: The patient is improving, but still talks to herself and is irritable at times. REVIEW OF SYSTEMS Constitutional: Negative for weight loss ENT: Negative for stridor Respiratory: Negative for cough or hemoptysis All other systems reviewed and are negative MENTAL STATUS EXAMINATION General Appearance and Behavior: Age appropriate, good hygiene, not wearing appropriate clothes, good eye contact, cooperative polite with questioning. Cooperation: Participating/engaged Psychomotor Behavior: Psychomotor agitation Mood: sad Affect and affective range: labile and dysthymic. Thought Process:Circumstantial, Illogical, Thought Content: Flight of ideas, Illogical, Grandiose, Speech: pressured, loud volume at times Intellectual Functioning: Average Suicidal Ideation: Denies SI Homicidal Ideation: Denies HIl Impulse Control: Impaired Insight and Judgment: Limited insight and judgment Memory: Normal, Attention: Divided attention impaired Orientation: Alert, oriented, Assessment and Plan (1) Schizoaffective disorder, bipolar type Current Visit: Yes Status: Acute F25.0 Treatment Plan Patient admitted for inpatient psychiatric evaluation, medication adjustment and close monitoring The patient's behavior, mood, sleep and appetite will be closely monitored. Patient enrolled in individual and group therapeutic sessions and encouraged to attend. Patient provided with a safe and structured environment. Patient's physical health needs will be addressed by the Hospitalist. Hospitalist Consulted Labs including CBC, CMP, Lipid profile and Hemoglobin A1C levels ordered for baseline reference Valproic level 09/05 7.6 Social Assessment will be completed and the Custom Decorating Consultant will work with patient and family to ensure a suitable and safe disposition Medication adjustment will be made as clinically indicated Continue Haldol 5mg po BID Increase pills Depakote 500mg po TID Usual Wellness Jewish/Preservation: - Start Trazodone 50 mg po QHS & 50 mg po QHS PRN between 10 PM & 2 AM for insomnia - Start Melatonin 5 mg po QHS to promote circadian rhythm - Start [place]-3 for brain health, reduce impulsivity, and as adjunctive treatment for mood disorder, continue upon discharge given overall benefits. - Start B1 prophylaxis with 200 mg po for 5 days The patient agreed on the treatment plan, understood the risk, benefit, alternative treatment, potential consequence of no treatment, and gave informed consent. Estimated days: 2 Post hospital care: primary care provider, psychiatric provider Medications and Allergies Allergies Allergy/AdvReac Type Severity Reaction Status Date / Time No Known Drug Allergies Allergy Unknown Verified 09/02/20 03:00 Home Medications Medication Instructions Recorded Confirmed Last Taken Type Atorvastatin 10 mg PO DAILY 09/02/20 09/02/20 Unknown History Divalproex ER [DepaKOTE ER] 500 mg PO BID 09/02/20 09/02/20 Unknown History LORazepam [Lorazepam] 2 mg PO TID PRN 09/02/20 09/02/20 Unknown History Levothyroxine [Synthroid] 75 mcg PO QAM 09/02/20 09/02/20 Unknown History Sodium Chloride 1 gm PO DAILY 09/02/20 09/02/20 Unknown History amLODIPine [Norvasc] 5 mg PO DAILY 09/02/20 09/02/20 Unknown History haloperidoL [Haldol] 5 mg PO BID 09/02/20 09/02/20 Unknown History risperiDONE [Risperdal] 3 mg PO BID 09/02/20 09/02/20 Unknown History Active Meds: Active Medications Amlodipine Besylate (Amlodipine 5 Mg Tab) 5 mg PO DAILY [facility] Last Admin: 09/07/20 10:30 Dose: 5 mg Documented by: Atorvastatin Calcium (Atorvastatin 10 Mg Tab) 10 mg PO QHS [facility] Last Admin: 09/07/20 23:59 Dose: Not Given Documented by: Clonazepam (Clonazepam 0.5 Mg Tab) 1 mg PO TID [facility] Last Admin: 09/07/20 23:57 Dose: Not Given Documented by: Divalproex Sodium (Divalproex Dr 500 Mg Tab) 500 mg PO BID [facility] Last Admin: 09/07/20 23:58 Dose: Not Given Documented by: Haloperidol (Haloperidol 5 Mg Tab) 5 mg PO BID [facility] Last Admin: 09/07/20 23:59 Dose: Not Given Documented by: Haloperidol Lactate (Haloperidol Lactate 5 Mg/1 Ml Inj) 5 mg IM Q6H PRN PRN Reason: Agitation Last Admin: 09/05/20 17:10 Dose: 5 mg Documented by: Levothyroxine Sodium (Levothyroxine 75 Mcg Tab) 75 mcg PO 0600 [facility] Last Admin: 09/08/20 05:45 Dose: 75 mcg Documented by: Lorazepam (Lorazepam 2 Mg/Ml Vial) 1 mg IM Q12HR PRN PRN Reason: Anxiety Last Admin: 09/05/20 17:26 Dose: 1 mg Documented by: Nicotine (Nicotine 21 Mg/24 Hr Patch) 21 mg TD QDAY [facility] Last Admin: 09/07/20 10:31 Dose: 21 mg Documented by: Sodium Chloride (Sodium Chloride 1 Gm Tab) 1 gm PO DAILY [facility] Last Admin: 09/07/20 10:31 Dose: 1 gm Documented by: Trazodone HCl (Trazodone 50 Mg Tab) 50 mg PO QHS [facility] Last Admin: 09/08/20 00:00 Dose: Not Given Documented by: Results - Results Labs/Vitals: Laboratory Last Values WBC 8.1 K/mm3 (4.5-11.0) 09/04/20 06:03 RBC 4.32 M/mm3 (3.65-5.03) 09/04/20 06:03 Hgb 12.3 gm/dl (10.1-14.3) 09/04/20 06:03 Hct 36.6 % (30.3-42.9) 09/04/20 06:03 MCV 85 fl (79-97) 09/04/20 06:03 MCH 29 pg (28-32) 09/04/20 06:03 MCHC 34 % (30-34) 09/04/20 06:03 RDW 18.9 % (13.2-15.2) H 09/04/20 06:03 Plt Count 401 K/mm3 (140-440) 09/04/20 06:03 Lymph % (Auto) 24.7 % (13.4-35.0) 09/04/20 06:03 [place] % (Auto) 6.7 % (0.0-7.3) 09/04/20 06:03 Eos % (Auto) 4.0 % (0.0-4.3) 09/04/20 06:03 Baso % (Auto) 1.6 % (0.0-1.8) 09/04/20 06:03 Lymph # (Auto) 2.0 K/mm3 (1.2-5.4) 09/04/20 06:03 [place] # (Auto) 0.5 K/mm3 (0.0-0.8) 09/04/20 06:03 Eos # (Auto) 0.3 K/mm3 (0.0-0.4) 09/04/20 06:03 Baso # (Auto) 0.1 K/mm3 (0.0-0.1) 09/04/20 06:03 Seg Neutrophils % 63.0 % (40.0-70.0) 09/04/20 06:03 Seg Neutrophils # 5.1 K/mm3 (1.8-7.7) 09/04/20 06:03 Sodium 130 mmol/L (137-145) L 09/04/20 06:03 Potassium 4.5 mmol/L (3.6-5.0) 09/04/20 06:03 Chloride 89.4 mmol/L (98-107) L 09/04/20 06:03 Carbon Dioxide 33 mmol/L (22-30) H 09/04/20 06:03 Anion Gap 12 mmol/L 09/04/20 06:03 BUN 15 mg/dL (7-17) 09/04/20 06:03 Creatinine 0.8 mg/dL (0.6-1.2) 09/04/20 06:03 Estimated GFR > 60 ml/min 09/04/20 06:03 BUN/Creatinine Ratio 19 % 09/04/20 06:03 Glucose 83 mg/dL (65-100) 09/04/20 06:03 POC Glucose 92 mg/dL (70-105) 09/02/20 04:57 Hemoglobin A1c 5.6 % (4-6) 09/04/20 06:03 Calcium 8.9 mg/dL (8.4-10.2) 09/04/20 06:03 Total Bilirubin 0.20 mg/dL (0.1-1.2) 09/04/20 06:03 AST 23 units/L (5-40) 09/04/20 06:03 ALT 16 units/L (7-56) 09/04/20 06:03 Alkaline Phosphatase 90 units/L (35-129) 09/04/20 06:03 Total Protein 7.3 g/dL (6.3-8.2) 09/04/20 06:03 Albumin 4.5 g/dL (3.9-5) 09/04/20 06:03 Albumin/Globulin Ratio 1.6 % 09/04/20 06:03 Triglycerides 82 mg/dL (2-149) 09/04/20 06:03 Cholesterol 189 mg/dL (50-199) 09/04/20 06:03 LDL Cholesterol Direct 98 mg/dL (50-130) 09/04/20 06:03 HDL Cholesterol 85 mg/dL (40-59) H 09/04/20 06:03 Cholesterol/HDL Ratio 2.22 % 09/04/20 06:03 TSH 100.000 mlU/mL (0.270-4.200) H 09/04/20 06:03 Valproic Acid 7.6 ug/mL (50-100) L 09/07/20 20:47 Last Vital Signs Temp 97.9 F 09/08/20 08:00 Pulse 74 09/08/20 08:00 Resp 18 09/08/20 08:00 BP 145/94 09/08/20 08:00 Pulse Ox 96 09/08/20 08:00
[2020-09-08] MEDS: amLODIPine 5 MG TAB PO SCH (09:53)
[2020-09-08] MEDS: clonazePAM 0.5 MG TAB PO SCH ×3 (09:54→21:00)
[2020-09-08] MEDS: DIVALPROEX DR 500 MG TAB PO SCH ×3 (09:55→21:00)
[2020-09-08] MEDS: HALOPERIDOL 5 MG TAB PO SCH ×2 (09:56→21:22)
[2020-09-08] MEDS: SODIUM CHLORIDE 1 GM TAB PO SCH (09:57)
[2020-09-08] MEDS: NICOTINE 21 MG/24 HR PATCH TD SCH (10:00)
--- NOTE | 2020-09-08 14:54 | Progress Note ---
Assessment and Plan - Patient Problems (1) HTN (hypertension) Current Visit: Yes Status: Acute Qualifiers: Hypertension type: essential hypertension Qualified Code(s): I10 - Essential (primary) hypertension Plan to address problem: Monitor BP q shift, continue medical management (2) HLD (hyperlipidemia) Current Visit: Yes Status: Acute Plan to address problem: Low cholesterol diet, statin therapy as clinically indicated. (3) Schizoaffective disorder, bipolar type Current Visit: Yes Status: Acute Plan to address problem: continue medical management. History Interval history: 60 YO Female with HTN, HLD, Hypothyroidism, Schizophrenia admitted to [facility] unit for Psychiatric stabilization. No reported nursing events. Pt denies pain. Hospitalist Physical - Constitutional Vitals: Temp Pulse Resp BP Pulse Ox 97.9 F 74 18 145/94 96 09/08/20 08:00 09/08/20 08:00 09/08/20 08:00 09/08/20 08:00 09/08/20 08:00 General appearance: Present: no acute distress - EENT Eyes: Present: PERRL ENT: hearing intact - Neck Neck: Present: supple - Respiratory Respiratory effort: normal Respiratory: bilateral: CTA - Cardiovascular Rhythm: regular Heart Sounds: Present: S1 & S2 - Extremities Extremities: no ischemia Peripheral Pulses: within normal limits - Abdominal General gastrointestinal: soft, non-tender, non-distended - Integumentary Integumentary: Present: clear, dry - Psychiatric Psychiatric: cooperative - Neurologic Neurologic: CNII-XII intact Results - Labs CBC & Chem 7: 09/04/20 06:03 09/04/20 06:03 Labs: Laboratory Last Values WBC 8.1 K/mm3 (4.5-11.0) 09/04/20 06:03 RBC 4.32 M/mm3 (3.65-5.03) 09/04/20 06:03 Hgb 12.3 gm/dl (10.1-14.3) 09/04/20 06:03 Hct 36.6 % (30.3-42.9) 09/04/20 06:03 MCV 85 fl (79-97) 09/04/20 06:03 MCH 29 pg (28-32) 09/04/20 06:03 MCHC 34 % (30-34) 09/04/20 06:03 RDW 18.9 % (13.2-15.2) H 09/04/20 06:03 Plt Count 401 K/mm3 (140-440) 09/04/20 06:03 Lymph % (Auto) 24.7 % (13.4-35.0) 09/04/20 06:03 [place] % (Auto) 6.7 % (0.0-7.3) 09/04/20 06:03 Eos % (Auto) 4.0 % (0.0-4.3) 09/04/20 06:03 Baso % (Auto) 1.6 % (0.0-1.8) 09/04/20 06:03 Lymph # (Auto) 2.0 K/mm3 (1.2-5.4) 09/04/20 06:03 [place] # (Auto) 0.5 K/mm3 (0.0-0.8) 09/04/20 06:03 Eos # (Auto) 0.3 K/mm3 (0.0-0.4) 09/04/20 06:03 Baso # (Auto) 0.1 K/mm3 (0.0-0.1) 09/04/20 06:03 Seg Neutrophils % 63.0 % (40.0-70.0) 09/04/20 06:03 Seg Neutrophils # 5.1 K/mm3 (1.8-7.7) 09/04/20 06:03 Sodium 130 mmol/L (137-145) L 09/04/20 06:03 Potassium 4.5 mmol/L (3.6-5.0) 09/04/20 06:03 Chloride 89.4 mmol/L (98-107) L 09/04/20 06:03 Carbon Dioxide 33 mmol/L (22-30) H 09/04/20 06:03 Anion Gap 12 mmol/L 09/04/20 06:03 BUN 15 mg/dL (7-17) 09/04/20 06:03 Creatinine 0.8 mg/dL (0.6-1.2) 09/04/20 06:03 Estimated GFR > 60 ml/min 09/04/20 06:03 BUN/Creatinine Ratio 19 % 09/04/20 06:03 Glucose 83 mg/dL (65-100) 09/04/20 06:03 POC Glucose 92 mg/dL (70-105) 09/02/20 04:57 Hemoglobin A1c 5.6 % (4-6) 09/04/20 06:03 Calcium 8.9 mg/dL (8.4-10.2) 09/04/20 06:03 Total Bilirubin 0.20 mg/dL (0.1-1.2) 09/04/20 06:03 AST 23 units/L (5-40) 09/04/20 06:03 ALT 16 units/L (7-56) 09/04/20 06:03 Alkaline Phosphatase 90 units/L (35-129) 09/04/20 06:03 Total Protein 7.3 g/dL (6.3-8.2) 09/04/20 06:03 Albumin 4.5 g/dL (3.9-5) 09/04/20 06:03 Albumin/Globulin Ratio 1.6 % 09/04/20 06:03 Triglycerides 82 mg/dL (2-149) 09/04/20 06:03 Cholesterol 189 mg/dL (50-199) 09/04/20 06:03 LDL Cholesterol Direct 98 mg/dL (50-130) 09/04/20 06:03 HDL Cholesterol 85 mg/dL (40-59) H 09/04/20 06:03 Cholesterol/HDL Ratio 2.22 % 09/04/20 06:03 TSH 100.000 mlU/mL (0.270-4.200) H 09/04/20 06:03 Valproic Acid 7.6 ug/mL (50-100) L 09/07/20 20:47 Don/IV: Voiding Method Toilet Active Medications - Current Medications Current Medications: Generic Name Dose Route Start Last Admin Trade Name Freq PRN Reason Stop Dose Admin Amlodipine Besylate 5 mg 09/04/20 10:00 09/08/20 09:53 Amlodipine 5 Mg Tab PO 5 mg DAILY [facility] Administration Atorvastatin Calcium 10 mg 09/04/20 22:00 09/07/20 23:59 Atorvastatin 10 Mg Tab PO Not Given QHS [facility] Clonazepam 1 mg 09/04/20 09:00 09/08/20 14:26 Clonazepam 0.5 Mg Tab PO 1 mg TID [facility] Administration Divalproex Sodium 500 mg 09/08/20 14:00 09/08/20 14:[address] 500 Mg Tab PO 500 mg TID [facility] Administration Haloperidol 5 mg 09/04/20 10:00 09/08/20 09:56 Haloperidol 5 Mg Tab PO 5 mg BID [facility] Administration Haloperidol Lactate 5 mg 09/02/20 03:22 09/05/20 17:10 Haloperidol Lactate 5 Mg/1 Ml Inj IM 5 mg Q6H PRN Administration Agitation Levothyroxine Sodium 75 mcg 09/04/20 10:00 09/08/20 05:45 Levothyroxine 75 Mcg Tab PO 75 mcg 0600 [facility] Administration Lorazepam 1 mg 09/02/20 10:00 09/05/20 17:26 Lorazepam 2 Mg/Ml Vial IM 1 mg Q12HR PRN Administration Anxiety Nicotine 21 mg 09/02/20 10:00 09/08/20 10:00 Nicotine 21 Mg/24 Hr Patch TD 21 mg QDAY [facility] Administration Sodium Chloride 1 gm 09/04/20 10:00 09/08/20 09:57 Sodium Chloride 1 Gm Tab PO 1 gm DAILY [facility] Administration Trazodone HCl 50 mg 09/02/20 22:00 09/08/20 00:00 Trazodone 50 Mg Tab PO Not Given QHS [facility]ARMEN
[2020-09-08] MEDS: traZODone 50 MG TAB PO SCH ×2 (21:20)
[2020-09-09] MEDS: LEVOTHYROXINE 75 MCG TAB PO SCH (06:17)
--- NOTE | 2020-09-09 09:11 | Progress Note ---
Subjective Date of service: 09/09/20 Principal diagnosis: Schizoaffective disorder, bipolar type Subjective Comment: Per Nurse Note: patient appears in good spirits, walking around. Frequently visits nurses station and ready to chat. The patient was seen today, she is smiling and appears in a good mood. She asks if we found her a place to go. She denies SI/HI or hallucinations of any kind. Reason for continuing acute inpatient psychiatric hospitalization: The patient is improving, but still talks to herself and is irritable at times. She is also awaiting placement. REVIEW OF SYSTEMS Constitutional: Negative for weight loss ENT: Negative for stridor Respiratory: Negative for cough or hemoptysis All other systems reviewed and are negative MENTAL STATUS EXAMINATION General Appearance and Behavior: Age appropriate, good hygiene, not wearing appropriate clothes, good eye contact, cooperative polite with questioning. Cooperation: Participating/engaged Psychomotor Behavior: Psychomotor agitation Mood: good Affect and affective range: smiling Thought Process: Circumstantial Thought Content: None Speech: pressured, loud volume at times Intellectual Functioning: Average Suicidal Ideation: Denies SI Homicidal Ideation: Denies HIl Impulse Control: Limited Insight and Judgment: Limited insight and judgment Memory: Normal, Attention: Divided attention impaired Orientation: Alert, oriented, Assessment and Plan (1) Schizoaffective disorder, bipolar type Current Visit: Yes Status: Acute F25.0 Treatment Plan Patient admitted for inpatient psychiatric evaluation, medication adjustment and close monitoring The patient's behavior, mood, sleep and appetite will be closely monitored. Patient enrolled in individual and group therapeutic sessions and encouraged to attend. Patient provided with a safe and structured environment. Patient's physical health needs will be addressed by the Hospitalist. Hospitalist Consulted Labs including CBC, CMP, Lipid profile and Hemoglobin A1C levels ordered for baseline reference Valproic level 09/05 7.6 Social Assessment will be completed and the Instrumental Teacher will work with patient and family to ensure a suitable and safe disposition Medication adjustment will be made as clinically indicated Continue Haldol 5mg po BID Continue Depakote 500mg po TID Usual Wellness Congregation/Preservation: - Start Trazodone 50 mg po QHS & 50 mg po QHS PRN between 10 PM & 2 AM for insomnia - Start Melatonin 5 mg po QHS to promote circadian rhythm - Start [place]-3 for brain health, reduce impulsivity, and as adjunctive treatment for mood disorder, continue upon discharge given overall benefits. - Start B1 prophylaxis with 200 mg po for 5 days The patient agreed on the treatment plan, understood the risk, benefit, alternative treatment, potential consequence of no treatment, and gave informed consent. Estimated days: 2 Post hospital care: primary care provider, psychiatric provider Medications and Allergies Allergies Allergy/AdvReac Type Severity Reaction Status Date / Time No Known Drug Allergies Allergy Unknown Verified 09/02/20 03:00 Home Medications Medication Instructions Recorded Confirmed Last Taken Type Atorvastatin 10 mg PO DAILY 09/02/20 09/02/20 Unknown History Divalproex ER [DepaKOTE ER] 500 mg PO BID 09/02/20 09/02/20 Unknown History LORazepam [Lorazepam] 2 mg PO TID PRN 09/02/20 09/02/20 Unknown History Levothyroxine [Synthroid] 75 mcg PO QAM 09/02/20 09/02/20 Unknown History Sodium Chloride 1 gm PO DAILY 09/02/20 09/02/20 Unknown History amLODIPine [Norvasc] 5 mg PO DAILY 09/02/20 09/02/20 Unknown History haloperidoL [Haldol] 5 mg PO BID 09/02/20 09/02/20 Unknown History risperiDONE [Risperdal] 3 mg PO BID 09/02/20 09/02/20 Unknown History Active Meds: Active Medications Amlodipine Besylate (Amlodipine 5 Mg Tab) 5 mg PO DAILY [facility] Last Admin: 09/08/20 09:53 Dose: 5 mg Documented by: Atorvastatin Calcium (Atorvastatin 10 Mg Tab) 10 mg PO QHS [facility] Last Admin: 09/08/20 21:20 Dose: 10 mg Documented by: Clonazepam (Clonazepam 0.5 Mg Tab) 1 mg PO TID [facility] Last Admin: 09/08/20 21:00 Dose: 1 mg Documented by: Divalproex Sodium (Divalproex Dr 500 Mg Tab) 500 mg PO TID [facility] Last Admin: 09/08/20 21:00 Dose: 500 mg Documented by: Haloperidol (Haloperidol 5 Mg Tab) 5 mg PO BID [facility] Last Admin: 09/08/20 21:22 Dose: 5 mg Documented by: Haloperidol Lactate (Haloperidol Lactate 5 Mg/1 Ml Inj) 5 mg IM Q6H PRN PRN Reason: Agitation Last Admin: 09/05/20 17:10 Dose: 5 mg Documented by: Levothyroxine Sodium (Levothyroxine 75 Mcg Tab) 75 mcg PO 0600 [facility] Last Admin: 09/09/20 06:17 Dose: 75 mcg Documented by: Lorazepam (Lorazepam 2 Mg/Ml Vial) 1 mg IM Q12HR PRN PRN Reason: Anxiety Last Admin: 09/05/20 17:26 Dose: 1 mg Documented by: Nicotine (Nicotine 21 Mg/24 Hr Patch) 21 mg TD QDAY [facility] Last Admin: 09/08/20 10:00 Dose: 21 mg Documented by: Sodium Chloride (Sodium Chloride 1 Gm Tab) 1 gm PO DAILY [facility] Last Admin: 09/08/20 09:57 Dose: 1 gm Documented by: Trazodone HCl (Trazodone 50 Mg Tab) 50 mg PO QHS [facility] Last Admin: 09/08/20 21:20 Dose: 50 mg Documented by: Results - Results Labs/Vitals: Laboratory Last Values WBC 8.1 K/mm3 (4.5-11.0) 09/04/20 06:03 RBC 4.32 M/mm3 (3.65-5.03) 09/04/20 06:03 Hgb 12.3 gm/dl (10.1-14.3) 09/04/20 06:03 Hct 36.6 % (30.3-42.9) 09/04/20 06:03 MCV 85 fl (79-97) 09/04/20 06:03 MCH 29 pg (28-32) 09/04/20 06:03 MCHC 34 % (30-34) 09/04/20 06:03 RDW 18.9 % (13.2-15.2) H 09/04/20 06:03 Plt Count 401 K/mm3 (140-440) 09/04/20 06:03 Lymph % (Auto) 24.7 % (13.4-35.0) 09/04/20 06:03 [place] % (Auto) 6.7 % (0.0-7.3) 09/04/20 06:03 Eos % (Auto) 4.0 % (0.0-4.3) 09/04/20 06:03 Baso % (Auto) 1.6 % (0.0-1.8) 09/04/20 06:03 Lymph # (Auto) 2.0 K/mm3 (1.2-5.4) 09/04/20 06:03 [place] # (Auto) 0.5 K/mm3 (0.0-0.8) 09/04/20 06:03 Eos # (Auto) 0.3 K/mm3 (0.0-0.4) 09/04/20 06:03 Baso # (Auto) 0.1 K/mm3 (0.0-0.1) 09/04/20 06:03 Seg Neutrophils % 63.0 % (40.0-70.0) 09/04/20 06:03 Seg Neutrophils # 5.1 K/mm3 (1.8-7.7) 09/04/20 06:03 Sodium 130 mmol/L (137-145) L 09/04/20 06:03 Potassium 4.5 mmol/L (3.6-5.0) 09/04/20 06:03 Chloride 89.4 mmol/L (98-107) L 09/04/20 06:03 Carbon Dioxide 33 mmol/L (22-30) H 09/04/20 06:03 Anion Gap 12 mmol/L 09/04/20 06:03 BUN 15 mg/dL (7-17) 09/04/20 06:03 Creatinine 0.8 mg/dL (0.6-1.2) 09/04/20 06:03 Estimated GFR > 60 ml/min 09/04/20 06:03 BUN/Creatinine Ratio 19 % 09/04/20 06:03 Glucose 83 mg/dL (65-100) 09/04/20 06:03 POC Glucose 92 mg/dL (70-105) 09/02/20 04:57 Hemoglobin A1c 5.6 % (4-6) 09/04/20 06:03 Calcium 8.9 mg/dL (8.4-10.2) 09/04/20 06:03 Total Bilirubin 0.20 mg/dL (0.1-1.2) 09/04/20 06:03 AST 23 units/L (5-40) 09/04/20 06:03 ALT 16 units/L (7-56) 09/04/20 06:03 Alkaline Phosphatase 90 units/L (35-129) 09/04/20 06:03 Total Protein 7.3 g/dL (6.3-8.2) 09/04/20 06:03 Albumin 4.5 g/dL (3.9-5) 09/04/20 06:03 Albumin/Globulin Ratio 1.6 % 09/04/20 06:03 Triglycerides 82 mg/dL (2-149) 09/04/20 06:03 Cholesterol 189 mg/dL (50-199) 09/04/20 06:03 LDL Cholesterol Direct 98 mg/dL (50-130) 09/04/20 06:03 HDL Cholesterol 85 mg/dL (40-59) H 09/04/20 06:03 Cholesterol/HDL Ratio 2.22 % 09/04/20 06:03 TSH 100.000 mlU/mL (0.270-4.200) H 09/04/20 06:03 Valproic Acid 7.6 ug/mL (50-100) L 09/07/20 20:47 Last Vital Signs Temp 97.9 F 09/08/20 08:00 Pulse 74 09/08/20 08:00 Resp 18 09/08/20 08:00 BP 145/94 09/08/20 08:00 Pulse Ox 96 09/08/20 08:00
[2020-09-09] MEDS: HALOPERIDOL 5 MG TAB PO SCH ×2 (09:28→21:10)
[2020-09-09] MEDS: NICOTINE 21 MG/24 HR PATCH TD SCH (09:38)
[2020-09-09] MEDS: amLODIPine 5 MG TAB PO SCH (09:39)
[2020-09-09] MEDS: clonazePAM 0.5 MG TAB PO SCH ×3 (09:39→20:38)
[2020-09-09] MEDS: DIVALPROEX DR 500 MG TAB PO SCH ×3 (09:40→20:38)
[2020-09-09] MEDS: SODIUM CHLORIDE 1 GM TAB PO SCH (09:43)
[2020-09-09] MEDS: traZODone 50 MG TAB PO SCH (21:10)
[2020-09-10] MEDS: LEVOTHYROXINE 75 MCG TAB PO SCH (05:57)
[2020-09-10] MEDS: clonazePAM 0.5 MG TAB PO SCH ×3 (08:54→21:58)
[2020-09-10] MEDS: DIVALPROEX DR 500 MG TAB PO SCH ×3 (08:54→21:58)
[2020-09-10] MEDS: amLODIPine 5 MG TAB PO SCH (09:27)
[2020-09-10] MEDS: NICOTINE 21 MG/24 HR PATCH TD SCH (09:27)
[2020-09-10] MEDS: SODIUM CHLORIDE 1 GM TAB PO SCH (09:27)
[2020-09-10] MEDS: HALOPERIDOL 5 MG TAB PO SCH ×2 (09:28→21:59)
--- NOTE | 2020-09-10 09:42 | Progress Note ---
Subjective Date of service: 09/10/20 Principal diagnosis: Schizoaffective disorder, bipolar type Subjective Comment: The patient was seen today, she says she's tired but feels okay. She asks if we found her a place to go. She then says "I got medicare they pay 80% and I got medicaid that picks up what Medicare doesn't. That's 100%." She denies SI/HI or hallucinations of any kind. Reason for continuing acute inpatient psychiatric hospitalization: The patient is improving, but still talks to herself and is irritable at times. She is also awaiting placement. REVIEW OF SYSTEMS Constitutional: Negative for weight loss ENT: Negative for stridor Respiratory: Negative for cough or hemoptysis All other systems reviewed and are negative MENTAL STATUS EXAMINATION General Appearance and Behavior: Age appropriate, good hygiene, not wearing appropriate clothes, good eye contact, cooperative polite with questioning. Cooperation: Participating/engaged Psychomotor Behavior: Psychomotor agitation Mood: good Affect and affective range: smiling Thought Process: Circumstantial Thought Content: None Speech: pressured, loud volume at times Intellectual Functioning: Average Suicidal Ideation: Denies SI Homicidal Ideation: Denies HIl Impulse Control: Limited Insight and Judgment: Limited insight and judgment Memory: Normal, Attention: Divided attention impaired Orientation: Alert, oriented, Assessment and Plan (1) Schizoaffective disorder, bipolar type Current Visit: Yes Status: Acute F25.0 Treatment Plan Patient admitted for inpatient psychiatric evaluation, medication adjustment and close monitoring The patient's behavior, mood, sleep and appetite will be closely monitored. Patient enrolled in individual and group therapeutic sessions and encouraged to attend. Patient provided with a safe and structured environment. Patient's physical health needs will be addressed by the Hospitalist. Ho spitalist Consulted Labs including CBC, CMP, Lipid profile and Hemoglobin A1C levels ordered for baseline reference Valproic level / Social Assessment will be completed and the Sales Assistant will work with patient and family to ensure a suitable and safe disposition Medication adjustment will be made as clinically indicated Continue Haldol 5mg po BID Continue Depakote 500mg po TID Usual Wellness Buddhist/Preservation: - Start Trazodone 50 mg po QHS & 50 mg po QHS PRN between 10 PM & 2 AM for insomnia - Start Melatonin 5 mg po QHS to promote circadian rhythm - Start [place]-3 for brain health, reduce impulsivity, and as adjunctive treatment for mood disorder, continue upon discharge given overall benefits. - Start B1 prophylaxis with 200 mg po for 5 days The patient agreed on the treatment plan, understood the risk, benefit, alternative treatment, potential consequence of no treatment, and gave informed consent. Estimated days: 2 Post hospital care: primary care provider, psychiatric provider Medications and Allergies Allergies Allergy/AdvReac Type Severity Reaction Status Date / Time No Known Drug Allergies Allergy Unknown Verified 09/02/20 03:00 Home Medications Medication Instructions Recorded Confirmed Last Taken Type Atorvastatin 10 mg PO DAILY 09/02/20 09/02/20 Unknown History Divalproex ER [DepaKOTE ER] 500 mg PO BID 09/02/20 09/02/20 Unknown History LORazepam [Lorazepam] 2 mg PO TID PRN 09/02/20 09/02/20 Unknown History Levothyroxine [Synthroid] 75 mcg PO QAM 09/02/20 09/02/20 Unknown History Sodium Chloride 1 gm PO DAILY 09/02/20 09/02/20 Unknown History amLODIPine [Norvasc] 5 mg PO DAILY 09/02/20 09/02/20 Unknown History haloperidoL [Haldol] 5 mg PO BID 09/02/20 09/02/20 Unknown History risperiDONE [Risperdal] 3 mg PO BID 09/02/20 09/02/20 Unknown History Active Meds: Active Medications Amlodipine Besylate (Amlodipine 5 Mg Tab) 5 mg PO DAILY [facility] Last Admin: 09/10/20 09:27 Dose: 5 mg Documented by: Atorvastatin Calcium (Atorvastatin 10 Mg Tab) 10 mg PO QHS [facility] Last Admin: 09/09/20 21:10 Dose: 10 mg Documented by: Clonazepam (Clonazepam 0.5 Mg Tab) 1 mg PO TID [facility] Last Admin: 09/10/20 08:54 Dose: 1 mg Documented by: Divalproex Sodium (Divalproex Dr 500 Mg Tab) 500 mg PO TID [facility] Last Admin: 09/10/20 08:54 Dose: 500 mg Documented by: Haloperidol (Haloperidol 5 Mg Tab) 5 mg PO BID [facility] Last Admin: 09/10/20 09:28 Dose: 5 mg Documented by: Haloperidol Lactate (Haloperidol Lactate 5 Mg/1 Ml Inj) 5 mg IM Q6H PRN PRN Reason: Agitation Last Admin: 04/24/21 17:10 Dose: 5 mg Documented by: Levothyroxine Sodium (Levothyroxine 75 Mcg Tab) 75 mcg PO 0600 [facility] Last Admin: 09/10/20 05:57 Dose: 75 mcg Documented by: Lorazepam (Lorazepam 2 Mg/Ml Vial) 1 mg IM Q12HR PRN PRN Reason: Anxiety Last Admin: 09/05/20 17:26 Dose: 1 mg Documented by: Nicotine (Nicotine 21 Mg/24 Hr Patch) 21 mg TD QDAY [facility] Last Admin: 09/10/20 09:27 Dose: 21 mg Documented by: Sodium Chloride (Sodium Chloride 1 Gm Tab) 1 gm PO DAILY [facility] Last Admin: 09/10/20 09:27 Dose: 1 gm Documented by: Trazodone HCl (Trazodone 50 Mg Tab) 50 mg PO QHS [facility] Last Admin: 09/09/20 21:10 Dose: 50 mg Documented by: Results - Results Labs/Vitals: Laboratory Last Values WBC 8.1 K/mm3 (4.5-11.0) 09/04/20 06:03 RBC 4.32 M/mm3 (3.65-5.03) 09/04/20 06:03 Hgb 12.3 gm/dl (10.1-14.3) 09/04/20 06:03 Hct 36.6 % (30.3-42.9) 09/04/20 06:03 MCV 85 fl (79-97) 09/04/20 06:03 MCH 29 pg (28-32) 09/04/20 06:03 MCHC 34 % (30-34) 09/04/20 06:03 RDW 18.9 % (13.2-15.2) H 09/04/20 06:03 Plt Count 401 K/mm3 (140-440) 09/04/20 06:03 Lymph % (Auto) 24.7 % (13.4-35.0) 09/04/20 06:03 [place] % (Auto) 6.7 % (0.0-7.3) 09/04/20 06:03 Eos % (Auto) 4.0 % (0.0-4.3) 09/04/20 06:03 Baso % (Auto) 1.6 % (0.0-1.8) 09/04/20 06:03 Lymph # (Auto) 2.0 K/mm3 (1.2-5.4) 09/04/20 06:03 [place] # (Auto) 0.5 K/mm3 (0.0-0.8) 09/04/20 06:03 Eos # (Auto) 0.3 K/mm3 (0.0-0.4) 09/04/20 06:03 Baso # (Auto) 0.1 K/mm3 (0.0-0.1) 09/04/20 06:03 Seg Neutrophils % 63.0 % (40.0-70.0) 09/04/20 06:03 Seg Neutrophils # 5.1 K/mm3 (1.8-7.7) 09/04/20 06:03 Sodium 130 mmol/L (137-145) L 09/04/20 06:03 Potassium 4.5 mmol/L (3.6-5.0) 09/04/20 06:03 Chloride 89.4 mmol/L (98-107) L 09/04/20 06:03 Carbon Dioxide 33 mmol/L (22-30) H 09/04/20 06:03 Anion Gap 12 mmol/L 09/04/20 06:03 BUN 15 mg/dL (7-17) 09/04/20 06:03 Creatinine 0.8 mg/dL (0.6-1.2) 09/04/20 06:03 Estimated GFR > 60 ml/min 09/04/20 06:03 BUN/Creatinine Ratio 19 % 09/04/20 06:03 Glucose 83 mg/dL (65-100) 09/04/20 06:03 POC Glucose 92 mg/dL (70-105) 09/02/20 04:57 Hemoglobin A1c 5.6 % (4-6) 09/04/20 06:03 Calcium 8.9 mg/dL (8.4-10.2) 09/04/20 06:03 Total Bilirubin 0.20 mg/dL (0.1-1.2) 09/04/20 06:03 AST 23 units/L (5-40) 09/04/20 06:03 ALT 16 units/L (7-56) 09/04/20 06:03 Alkaline Phosphatase 90 units/L (35-129) 09/04/20 06:03 Total Protein 7.3 g/dL (6.3-8.2) 09/04/20 06:03 Albumin 4.5 g/dL (3.9-5) 09/04/20 06:03 Albumin/Globulin Ratio 1.6 % 09/04/20 06:03 Triglycerides 82 mg/dL (2-149) 09/04/20 06:03 Cholesterol 189 mg/dL (50-199) 09/04/20 06:03 LDL Cholesterol Direct 98 mg/dL (50-130) 09/04/20 06:03 HDL Cholesterol 85 mg/dL (40-59) H 09/04/20 06:03 Cholesterol/HDL Ratio 2.22 % 09/04/20 06:03 TSH 100.000 mlU/mL (0.270-4.200) H 09/04/20 06:03 Valproic Acid 7.6 ug/mL (50-100) L 09/07/20 20:47 Last Vital Signs Temp 97.9 F 09/10/20 08:47 Pulse 79 09/10/20 08:47 Resp 16 09/10/20 08:47 BP 111/80 09/10/20 08:47 Pulse Ox 92 09/10/20 08:47
[2020-09-10] MEDS: traZODone 50 MG TAB PO SCH (21:59)
[2020-09-11] MEDS: LEVOTHYROXINE 75 MCG TAB PO SCH (05:05)
--- NOTE | 2020-09-11 09:49 | Progress Note ---
Subjective Date of service: 09/11/20 Principal diagnosis: Schizoaffective disorder, bipolar type Subjective Comment: Psych Nurse: pt spent the evening in her room, came out for snack and went back to room afterward, pt is labile, irritable, pressured speech, disorganized observed talking to herself, she refused her medication, no distress noted, will continue to monitor for safety. Psych Progress MIss Fan seen in breakfast room, responded nicely to greeting, requesting to now go home. Patient asked if she hears voices and she became irritable almost immediately and started shouting that she doesnt hear voices other than mine at the moment. Patient states she is sad she cant live with her brother and sister because they dont want her there, she endorses medication compliant and attest to feeling better. Reason for continuing acute inpatient psychiatric hospitalization: improving mood stability, planning for safety discharge. REVIEW OF SYSTEMS ROS cannot be reliably obtained from the patient due to her confusion. MENTAL STATUS EXAMINATION General Appearance and Behavior: Age appropriate, good hygiene, wearing appropriate clothes, good eye contact,irritable cooperative with questioning. Cooperation: Participating/engaged Psychomotor Behavior: Psychomotor normal Mood: good Affect and affective range: labile Thought Process:Circumstantial Thought Content: Flight of ideas, Illogical Speech: pressured, loud volume at times Intellectual Functioning: Fair Suicidal Ideation: Denies SI Homicidal Ideation: Denies HIl Impulse Control: Impaired Insight and Judgment: Limited insight and judgment Memory:impaired Attention: Divided attention impaired Orientation: Alert, oriented, Diagnoses: Assessment and Plan - Psychiatric problem (1) Schizoaffective disorder, bipolar type Current Visit: Yes Status: Acute F25.0 Treatment Plan Continue current medications. Patient admitted for inpatient psychiatric evaluation, medication adjustment and close monitoring The patient's behavior, mood, sleep and appetite will be closely monitored. Patient enrolled in individual and group therapeutic sessions and encouraged to attend. Patient provided with a safe and structured environment. Patient's physical health needs will be addressed by the Hospitalist. Hospitalist Consulted Labs including CBC, CMP, Lipid profile and Hemoglobin A1C levels ordered for baseline reference Social Assessment will be completed and the Rn Practitioner will work with patien t and family to ensure a suitable and safe disposition Medication adjustment will be made as clinically indicated Usual Wellness Religion/Preservation: - Start Trazodone 50 mg po QHS & 50 mg po QHS PRN between 10 PM & 2 AM for insomnia - Start Melatonin 5 mg po QHS to promote circadian rhythm - Start [place]-3 for brain health, reduce impulsivity, and as adjunctive treatment for mood disorder, continue upon discharge given overall benefits. - Start B1 prophylaxis with 200 mg po for 5 days The patient agreed on the treatment plan, understood the risk, benefit, alternative treatment, potential consequence of no treatment, and gave informed consent. Initial Certification Inpatient psych services: I certify that the inpatient psychiatric services are required for treatment that could reasonably be expected to improve the patient's condition. Estimated days: 4 Post hospital care: primary care provider, psychiatric provider Assessment and Plan - Patient Problems (1) Schizoaffective disorder, bipolar type Current Visit: Yes Status: Acute Medications and Allergies Allergies Allergy/AdvReac Type Severity Reaction Status Date / Time No Known Drug Allergies Allergy Unknown Verified 09/02/20 03:00 Home Medications Medication Instructions Recorded Confirmed Last Taken Type Atorvastatin 10 mg PO DAILY 09/02/20 09/02/20 Unknown History Divalproex ER [DepaKOTE ER] 500 mg PO BID 09/02/20 09/02/20 Unknown History LORazepam [Lorazepam] 2 mg PO TID PRN 09/02/20 09/02/20 Unknown History Levothyroxine [Synthroid] 75 mcg PO QAM 09/02/20 09/02/20 Unknown History Sodium Chloride 1 gm PO DAILY 09/02/20 09/02/20 Unknown History amLODIPine [Norvasc] 5 mg PO DAILY 09/02/20 09/02/20 Unknown History haloperidoL [Haldol] 5 mg PO BID 09/02/20 09/02/20 Unknown History risperiDONE [Risperdal] 3 mg PO BID 09/02/20 09/02/20 Unknown History Active Meds: Active Medications Amlodipine Besylate (Amlodipine 5 Mg Tab) 5 mg PO DAILY [facility] Last Admin: 09/10/20 09:27 Dose: 5 mg Documented by: Atorvastatin Calcium (Atorvastatin 10 Mg Tab) 10 mg PO QHS [facility] Last Admin: 09/10/20 21:58 Dose: Not Given Documented by: Clonazepam (Clonazepam 0.5 Mg Tab) 1 mg PO TID [facility] Last Admin: 09/10/20 21:58 Dose: Not Given Documented by: Divalproex Sodium (Divalproex Dr 500 Mg Tab) 500 mg PO TID [facility] Last Admin: 09/10/20 21:58 Dose: Not Given Documented by: Haloperidol (Haloperidol 5 Mg Tab) 5 mg PO BID [facility] Last Admin: 09/10/20 21:59 Dose: Not Given Documented by: Haloperidol Lactate (Haloperidol Lactate 5 Mg/1 Ml Inj) 5 mg IM Q6H PRN PRN Reason: Agitation Last Admin: 09/05/20 17:10 Dose: 5 mg Documented by: Levothyroxine Sodium (Levothyroxine 75 Mcg Tab) 75 mcg PO 0600 [facility] Last Admin: 09/11/20 05:05 Dose: 75 mcg Documented by: Lorazepam (Lorazepam 2 Mg/Ml Vial) 1 mg IM Q12HR PRN PRN Reason: Anxiety Last Admin: 09/05/20 17:26 Dose: 1 mg Documented by: Nicotine (Nicotine 21 Mg/24 Hr Patch) 21 mg TD QDAY [facility] Last Admin: 09/10/20 09:27 Dose: 21 mg Documented by: Sodium Chloride (Sodium Chloride 1 Gm Tab) 1 gm PO DAILY [facility] Last Admin: 09/10/20 09:27 Dose: 1 gm Documented by: Trazodone HCl (Trazodone 50 Mg Tab) 50 mg PO QHS [facility] Last Admin: 09/10/20 21:59 Dose: Not Given Documented by: Results - Results Labs/Vitals: Laboratory Last Values WBC 8.1 K/mm3 (4.5-11.0) 09/04/20 06:03 RBC 4.32 M/mm3 (3.65-5.03) 09/04/20 06:03 Hgb 12.3 gm/dl (10.1-14.3) 09/04/20 06:03 Hct 36.6 % (30.3-42.9) 09/04/20 06:03 MCV 85 fl (79-97) 09/04/20 06:03 MCH 29 pg (28-32) 09/04/20 06:03 MCHC 34 % (30-34) 09/04/20 06:03 RDW 18.9 % (13.2-15.2) H 09/04/20 06:03 Plt Count 401 K/mm3 (140-440) 09/04/20 06:03 Lymph % (Auto) 24.7 % (13.4-35.0) 09/04/20 06:03 [place] % (Auto) 6.7 % (0.0-7.3) 09/04/20 06:03 Eos % (Auto) 4.0 % (0.0-4.3) 09/04/20 06:03 Baso % (Auto) 1.6 % (0.0-1.8) 09/04/20 06:03 Lymph # (Auto) 2.0 K/mm3 (1.2-5.4) 09/04/20 06:03 [place] # (Auto) 0.5 K/mm3 (0.0-0.8) 09/04/20 06:03 Eos # (Auto) 0.3 K/mm3 (0.0-0.4) 09/04/20 06:03 Baso # (Auto) 0.1 K/mm3 (0.0-0.1) 09/04/20 06:03 Seg Neutrophils % 63.0 % (40.0-70.0) 09/04/20 06:03 Seg Neutrophils # 5.1 K/mm3 (1.8-7.7) 09/04/20 06:03 Sodium 130 mmol/L (137-145) L 09/04/20 06:03 Potassium 4.5 mmol/L (3.6-5.0) 09/04/20 06:03 Chloride 89.4 mmol/L (98-107) L 09/04/20 06:03 Carbon Dioxide 33 mmol/L (22-30) H 09/04/20 06:03 Anion Gap 12 mmol/L 09/04/20 06:03 BUN 15 mg/dL (7-17) 09/04/20 06:03 Creatinine 0.8 mg/dL (0.6-1.2) 09/04/20 06:03 Estimated GFR > 60 ml/min 09/04/20 06:03 BUN/Creatinine Ratio 19 % 09/04/20 06:03 Glucose 83 mg/dL (65-100) 09/04/20 06:03 POC Glucose 92 mg/dL (70-105) 09/02/20 04:57 Hemoglobin A1c 5.6 % (4-6) 09/04/20 06:03 Calcium 8.9 mg/dL (8.4-10.2) 09/04/20 06:03 Total Bilirubin 0.20 mg/dL (0.1-1.2) 09/04/20 06:03 AST 23 units/L (5-40) 09/04/20 06:03 ALT 16 units/L (7-56) 09/04/20 06:03 Alkaline Phosphatase 90 units/L (35-129) 09/04/20 06:03 Total Protein 7.3 g/dL (6.3-8.2) 09/04/20 06:03 Albumin 4.5 g/dL (3.9-5) 09/04/20 06:03 Albumin/Globulin Ratio 1.6 % 09/04/20 06:03 Triglycerides 82 mg/dL (2-149) 09/04/20 06:03 Cholesterol 189 mg/dL (50-199) 09/04/20 06:03 LDL Cholesterol Direct 98 mg/dL (50-130) 09/04/20 06:03 HDL Cholesterol 85 mg/dL (40-59) H 09/04/20 06:03 Cholesterol/HDL Ratio 2.22 % 09/04/20 06:03 TSH 100.000 mlU/mL (0.270-4.200) H 09/04/20 06:03 Valproic Acid 7.6 ug/mL (50-100) L 09/07/20 20:47 Last Vital Signs Temp 97.9 F 09/10/20 08:47 Pulse 79 09/10/20 08:47 Resp 16 09/10/20 08:47 BP 111/80 09/10/20 08:47 Pulse Ox 92 09/10/20 08:47
[2020-09-11] MEDS: clonazePAM 0.5 MG TAB PO SCH ×3 (11:31→20:32)
[2020-09-11] MEDS: HALOPERIDOL 5 MG TAB PO SCH ×2 (11:31→21:18)
[2020-09-11] MEDS: SODIUM CHLORIDE 1 GM TAB PO SCH (11:32)
[2020-09-11] MEDS: DIVALPROEX DR 500 MG TAB PO SCH ×3 (11:32→20:31)
[2020-09-11] MEDS: amLODIPine 5 MG TAB PO SCH (11:32)
[2020-09-11] MEDS: NICOTINE 21 MG/24 HR PATCH TD SCH (11:33)
--- NOTE | 2020-09-11 20:42 | Progress Note ---
Assessment and Plan - Patient Problems (1) HTN (hypertension) Current Visit: Yes Status: Acute Qualifiers: Hypertension type: essential hypertension Qualified Code(s): I10 - Essential (primary) hypertension Plan to address problem: Monitor BP q shift, continue medical management (2) HLD (hyperlipidemia) Current Visit: Yes Status: Acute Plan to address problem: Low cholesterol diet, statin therapy as clinically indicated. (3) Schizoaffective disorder, bipolar type Current Visit: Yes Status: Acute Plan to address problem: continue medical management. History Interval history: 60 YO Female with HTN, HLD, Hypothyroidism, Schizophrenia admitted to [facility] psych unit for Psychiatric stabilization. No reported nursing events. Pt denies pain. Hospitalist Physical - Constitutional Vitals: Temp Pulse Resp BP Pulse Ox 97.5 F L 55 L 20 110/79 96 09/11/20 07:43 09/11/20 11:32 09/11/20 07:43 09/11/20 11:32 09/11/20 07:43 General appearance: Present: no acute distress - EENT Eyes: Present: PERRL, EOM intact ENT: hearing intact - Neck Neck: Present: supple, normal ROM - Respiratory Respiratory: bilateral: CTA - Cardiovascular Rhythm: regular Heart Sounds: Present: S1 & S2 - Extremities Extremities: no ischemia Peripheral Pulses: within normal limits - Abdominal General gastrointestinal: soft, non-tender, non-distended - Integumentary Integumentary: Present: clear, dry - Psychiatric Psychiatric: cooperative - Neurologic Neurologic: CNII-XII intact Results - Labs CBC & Chem 7: 09/04/20 06:03 09/04/20 06:03 Labs: Laboratory Last Values WBC 8.1 K/mm3 (4.5-11.0) 09/04/20 06:03 RBC 4.32 M/mm3 (3.65-5.03) 09/04/20 06:03 Hgb 12.3 gm/dl (10.1-14.3) 09/04/20 06:03 Hct 36.6 % (30.3-42.9) 09/04/20 06:03 MCV 85 fl (79-97) 09/04/20 06:03 MCH 29 pg (28-32) 09/04/20 06:03 MCHC 34 % (30-34) 09/04/20 06:03 RDW 18.9 % (13.2-15.2) H 09/04/20 06:03 Plt Count 401 K/mm3 (140-440) 09/04/20 06:03 Lymph % (Auto) 24.7 % (13.4-35.0) 09/04/20 06:03 [place] % (Auto) 6.7 % (0.0-7.3) 09/04/20 06:03 Eos % (Auto) 4.0 % (0.0-4.3) 09/04/20 06:03 Baso % (Auto) 1.6 % (0.0-1.8) 09/04/20 06:03 Lymph # (Auto) 2.0 K/mm3 (1.2-5.4) 09/04/20 06:03 [place] # (Auto) 0.5 K/mm3 (0.0-0.8) 09/04/20 06:03 Eos # (Auto) 0.3 K/mm3 (0.0-0.4) 09/04/20 06:03 Baso # (Auto) 0.1 K/mm3 (0.0-0.1) 09/04/20 06:03 Seg Neutrophils % 63.0 % (40.0-70.0) 09/04/20 06:03 Seg Neutrophils # 5.1 K/mm3 (1.8-7.7) 09/04/20 06:03 Sodium 130 mmol/L (137-145) L 09/04/20 06:03 Potassium 4.5 mmol/L (3.6-5.0) 09/04/20 06:03 Chloride 89.4 mmol/L (98-107) L 09/04/20 06:03 Carbon Dioxide 33 mmol/L (22-30) H 09/04/20 06:03 Anion Gap 12 mmol/L 09/04/20 06:03 BUN 15 mg/dL (7-17) 09/04/20 06:03 Creatinine 0.8 mg/dL (0.6-1.2) 09/04/20 06:03 Estimated GFR > 60 ml/min 09/04/20 06:03 BUN/Creatinine Ratio 19 % 09/04/20 06:03 Glucose 83 mg/dL (65-100) 09/04/20 06:03 POC Glucose 92 mg/dL (70-105) 09/02/20 04:57 Hemoglobin A1c 5.6 % (4-6) 09/04/20 06:03 Calcium 8.9 mg/dL (8.4-10.2) 09/04/20 06:03 Total Bilirubin 0.20 mg/dL (0.1-1.2) 09/04/20 06:03 AST 23 units/L (5-40) 09/04/20 06:03 ALT 16 units/L (7-56) 09/04/20 06:03 Alkaline Phosphatase 90 units/L (35-129) 09/04/20 06:03 Total Protein 7.3 g/dL (6.3-8.2) 09/04/20 06:03 Albumin 4.5 g/dL (3.9-5) 09/04/20 06:03 Albumin/Globulin Ratio 1.6 % 09/04/20 06:03 Triglycerides 82 mg/dL (2-149) 09/04/20 06:03 Cholesterol 189 mg/dL (50-199) 09/04/20 06:03 LDL Cholesterol Direct 98 mg/dL (50-130) 09/04/20 06:03 HDL Cholesterol 85 mg/dL (40-59) H 09/04/20 06:03 Cholesterol/HDL Ratio 2.22 % 09/04/20 06:03 TSH 100.000 mlU/mL (0.270-4.200) H 09/04/20 06:03 Valproic Acid 7.6 ug/mL (50-100) L 09/07/20 20:47 Don/IV: Voiding Method Toilet Active Medications - Current Medications Current Medications: Generic Name Dose Route Start Last Admin Trade Name Freq PRN Reason Stop Dose Admin Amlodipine Besylate 5 mg 09/04/20 10:00 09/11/20 11:32 Amlodipine 5 Mg Tab PO 5 mg DAILY KARMEN Administration Atorvastatin Calcium 10 mg 09/04/20 22:00 09/10/20 21:58 Atorvastatin 10 Mg Tab PO Not Given QHS KARMEN Clonazepam 1 mg 09/04/20 09:00 09/11/20 20:32 Clonazepam 0.5 Mg Tab PO 1 mg TID KARMEN Administration Divalproex Sodium 500 mg 09/08/20 14:00 09/11/20 20:[address] 500 Mg Tab PO 500 mg TID KARMEN Administration Haloperidol 5 mg 09/04/20 10:00 09/11/20 11:31 Haloperidol 5 Mg Tab PO 5 mg BID KARMEN Administration Haloperidol Lactate 5 mg 09/02/20 03:22 09/05/20 17:10 Haloperidol Lactate 5 Mg/1 Ml Inj IM 5 mg Q6H PRN Administration Agitation Levothyroxine Sodium 75 mcg 09/04/20 10:00 09/11/20 05:05 Levothyroxine 75 Mcg Tab PO 75 mcg 0600 KARMEN Administration Lorazepam 1 mg 09/02/20 10:00 09/05/20 17:26 Lorazepam 2 Mg/Ml Vial IM 1 mg Q12HR PRN Administration Anxiety Nicotine 21 mg 09/02/20 10:00 09/11/20 11:33 Nicotine 21 Mg/24 Hr Patch TD 21 mg QDAY KARMEN Administration Sodium Chloride 1 gm 09/04/20 10:00 09/11/20 11:32 Sodium Chloride 1 Gm Tab PO 1 gm DAILY [facility]ARMEN Administration Trazodone HCl 50 mg 09/02/20 22:00 09/10/20 21:59 Trazodone 50 Mg Tab PO Not Given QHS [facility] Nutrition/Malnutrition Assess - Dietary Evaluation Nutrition/Malnutrition Findings: Nutrition Notes Start: 09/09/20 07:41 Freq: Status: Active Protocol: Document 09/09/20 07:41 LP (Rec: 09/09/20 07:42 LP [id number]) Nutrition Notes Need for Assessment generated from: LOS Initial or Follow up Brief Note Subjective/Other Information Screen for LOS. Pt consuming 75-100% of meals. Nutrition Intervention Revisit per MD consult or patient Sign Off request:
--- NOTE | 2020-09-11 20:43 | Progress Note ---
Assessment and Plan - Patient Problems (1) HTN (hypertension) Current Visit: Yes Status: Acute Qualifiers: Hypertension type: essential hypertension Qualified Code(s): I10 - Essential (primary) hypertension Plan to address problem: Monitor BP q shift, continue medical management (2) HLD (hyperlipidemia) Current Visit: Yes Status: Acute Plan to address problem: Low cholesterol diet, statin therapy as clinically indicated. (3) Schizoaffective disorder, bipolar type Current Visit: Yes Status: Acute Plan to address problem: continue medical management. History Interval history: 60 YO Female with HTN, HLD, Hypothyroidism, Schizophrenia admitted to [facility] unit for Psychiatric stabilization. No reported nursing events. Pt denies pain. Hospitalist Physical - Constitutional Vitals: Temp Pulse Resp BP Pulse Ox 97.5 F L 55 L 20 110/79 96 09/11/20 07:43 09/11/20 11:32 09/11/20 07:43 09/11/20 11:32 09/11/20 07:43 General appearance: Present: no acute distress - EENT Eyes: Present: PERRL ENT: hearing intact - Neck Neck: Present: supple - Respiratory Respiratory effort: normal Respiratory: bilateral: CTA - Cardiovascular Rhythm: regular Heart Sounds: Present: S1 & S2 - Extremities Extremities: no ischemia Peripheral Pulses: within normal limits - Abdominal General gastrointestinal: soft, non-tender, non-distended - Integumentary Integumentary: Present: clear, dry - Psychiatric Psychiatric: cooperative - Neurologic Neurologic: CNII-XII intact Results - Labs CBC & Chem 7: 09/04/20 06:03 09/04/20 06:03 Labs: Laboratory Last Values WBC 8.1 K/mm3 (4.5-11.0) 09/04/20 06:03 RBC 4.32 M/mm3 (3.65-5.03) 09/04/20 06:03 Hgb 12.3 gm/dl (10.1-14.3) 09/04/20 06:03 Hct 36.6 % (30.3-42.9) 09/04/20 06:03 MCV 85 fl (79-97) 09/04/20 06:03 MCH 29 pg (28-32) 09/04/20 06:03 MCHC 34 % (30-34) 09/04/20 06:03 RDW 18.9 % (13.2-15.2) H 09/04/20 06:03 Plt Count 401 K/mm3 (140-440) 09/04/20 06:03 Lymph % (Auto) 24.7 % (13.4-35.0) 09/04/20 06:03 [place] % (Auto) 6.7 % (0.0-7.3) 09/04/20 06:03 Eos % (Auto) 4.0 % (0.0-4.3) 09/04/20 06:03 Baso % (Auto) 1.6 % (0.0-1.8) 09/04/20 06:03 Lymph # (Auto) 2.0 K/mm3 (1.2-5.4) 09/04/20 06:03 [place] # (Auto) 0.5 K/mm3 (0.0-0.8) 09/04/20 06:03 Eos # (Auto) 0.3 K/mm3 (0.0-0.4) 09/04/20 06:03 Baso # (Auto) 0.1 K/mm3 (0.0-0.1) 09/04/20 06:03 Seg Neutrophils % 63.0 % (40.0-70.0) 09/04/20 06:03 Seg Neutrophils # 5.1 K/mm3 (1.8-7.7) 09/04/20 06:03 Sodium 130 mmol/L (137-145) L 09/04/20 06:03 Potassium 4.5 mmol/L (3.6-5.0) 09/04/20 06:03 Chloride 89.4 mmol/L (98-107) L 09/04/20 06:03 Carbon Dioxide 33 mmol/L (22-30) H 09/04/20 06:03 Anion Gap 12 mmol/L 09/04/20 06:03 BUN 15 mg/dL (7-17) 09/04/20 06:03 Creatinine 0.8 mg/dL (0.6-1.2) 09/04/20 06:03 Estimated GFR > 60 ml/min 09/04/20 06:03 BUN/Creatinine Ratio 19 % 09/04/20 06:03 Glucose 83 mg/dL (65-100) 09/04/20 06:03 POC Glucose 92 mg/dL (70-105) 09/02/20 04:57 Hemoglobin A1c 5.6 % (4-6) 09/04/20 06:03 Calcium 8.9 mg/dL (8.4-10.2) 09/04/20 06:03 Total Bilirubin 0.20 mg/dL (0.1-1.2) 09/04/20 06:03 AST 23 units/L (5-40) 09/04/20 06:03 ALT 16 units/L (7-56) 09/04/20 06:03 Alkaline Phosphatase 90 units/L (35-129) 09/04/20 06:03 Total Protein 7.3 g/dL (6.3-8.2) 09/04/20 06:03 Albumin 4.5 g/dL (3.9-5) 09/04/20 06:03 Albumin/Globulin Ratio 1.6 % 09/04/20 06:03 Triglycerides 82 mg/dL (2-149) 09/04/20 06:03 Cholesterol 189 mg/dL (50-199) 09/04/20 06:03 LDL Cholesterol Direct 98 mg/dL (50-130) 09/04/20 06:03 HDL Cholesterol 85 mg/dL (40-59) H 09/04/20 06:03 Cholesterol/HDL Ratio 2.22 % 09/04/20 06:03 TSH 100.000 mlU/mL (0.270-4.200) H 09/04/20 06:03 Valproic Acid 7.6 ug/mL (50-100) L 09/07/20 20:47 Don/IV: Voiding Method Toilet Active Medications - Current Medications Current Medications: Generic Name Dose Route Start Last Admin Trade Name Freq PRN Reason Stop Dose Admin Amlodipine Besylate 5 mg 09/04/20 10:00 09/11/20 11:32 Amlodipine 5 Mg Tab PO 5 mg DAILY [facility] Administration Atorvastatin Calcium 10 mg 09/04/20 22:00 09/10/20 21:58 Atorvastatin 10 Mg Tab PO Not Given QHS [facility] Clonazepam 1 mg 09/04/20 09:00 09/11/20 20:32 Clonazepam 0.5 Mg Tab PO 1 mg TID [facility] Administration Divalproex Sodium 500 mg 09/08/20 14:00 09/11/20 20:[address] 500 Mg Tab PO 500 mg TID [facility] Administration Haloperidol 5 mg 09/04/20 10:00 09/11/20 11:31 Haloperidol 5 Mg Tab PO 5 mg BID [facility] Administration Haloperidol Lactate 5 mg 09/02/20 03:22 09/05/20 17:10 Haloperidol Lactate 5 Mg/1 Ml Inj IM 5 mg Q6H PRN Administration Agitation Levothyroxine Sodium 75 mcg 09/04/20 10:00 09/11/20 05:05 Levothyroxine 75 Mcg Tab PO 75 mcg 0600 [facility] Administration Lorazepam 1 mg 09/02/20 10:00 09/05/20 17:26 Lorazepam 2 Mg/Ml Vial IM 1 mg Q12HR PRN Administration Anxiety Nicotine 21 mg 09/02/20 10:00 09/11/20 11:33 Nicotine 21 Mg/24 Hr Patch TD 21 mg QDAY [facility] Administration Sodium Chloride 1 gm 09/04/20 10:00 09/11/20 11:32 Sodium Chloride 1 Gm Tab PO 1 gm DAILY [facility] Administration Trazodone HCl 50 mg 09/02/20 22:00 09/10/20 21:59 Trazodone 50 Mg Tab PO Not Given QHS [facility] Nutrition/Malnutrition Assess - Dietary Evaluation Nutrition/Malnutrition Findings: Nutrition Notes Start: 09/09/20 07:41 Freq: Status: Active Protocol: Document 09/09/20 07:41 LP (Rec: 09/09/20 07:42 LP [id number]) Nutrition Notes Need for Assessment generated from: LOS Initial or Follow up Brief Note Subjective/Other Information Screen for LOS. Pt consuming 75-100% of meals. Nutrition Intervention Revisit per MD consult or patient Sign Off request:
[2020-09-11] MEDS: traZODone 50 MG TAB PO SCH (21:18)
[2020-09-12] MEDS: LEVOTHYROXINE 75 MCG TAB PO SCH (05:47)
[2020-09-12] MEDS: clonazePAM 0.5 MG TAB PO SCH ×3 (09:35→21:27)
[2020-09-12] MEDS: DIVALPROEX DR 500 MG TAB PO SCH ×3 (09:35→21:27)
[2020-09-12] MEDS: HALOPERIDOL 5 MG TAB PO SCH ×2 (09:35→21:26)
[2020-09-12] MEDS: SODIUM CHLORIDE 1 GM TAB PO SCH (09:35)
[2020-09-12] MEDS: NICOTINE 21 MG/24 HR PATCH TD SCH (09:36)
[2020-09-12] MEDS: amLODIPine 5 MG TAB PO SCH (09:39)
--- NOTE | 2020-09-12 10:14 | Progress Note ---
Subjective Date of service: 09/12/20 Principal diagnosis: Schizoaffective disorder, bipolar type Subjective Comment: Psych Nurse:Last evening the patient was irritable at times. She becomes upset if she has to wait for anything. She especially becomes upset when it is explained that we don't give coffee/caffeine at bedtime. She becomes angry and refuses her nighttime medications. She denies si/hi. Rarely she is heard talking to herself. Her appetite is good. One of her peers stated earlier in the day that the patient was in her room looking through her belongings. When her peer asked her to leave the room she lay on the floor in the hallway. Psych Progress Patient seen this AM, reports she thinks her leg is broken and she needs some ibuprofen. Patient then kept looking sad requesting ibuprofen, besides this she says she is other weeks fine. Reason for continuing acute inpatient psychiatric hospitalization: improving mood stability, no acute manic phase, concern patients minor episodes of outburst maybe baseline when no given simple things she wants. planning for safety discharge. REVIEW OF SYSTEMS ROS cannot be reliably obtained from the patient due to her confusion. MENTAL STATUS EXAMINATION General Appearance and Behavior: Age appropriate, good hygiene, wearing appropriate clothes, good eye contact,irritable cooperative with questioning. Cooperation: Participating/engaged Psychomotor Behavior: Psychomotor normal Mood: good Affect and affective range: labile Thought Process:Circumstantial Thought Content: Flight of ideas, Illogical Speech: pressured, loud volume at times Intellectual Functioning: Fair Suicidal Ideation: Denies SI Homicidal Ideation: Denies HIl Impulse Control: Impaired Insight and Judgment: Limited insight and judgment Memory:impaired Attention: Divided attention impaired Orientation: Alert, oriented, Diagnoses: Assessment and Plan - Psychiatric problem (1) Schizoaffective disorder, bipolar type Current Visit: Yes Status: Acute F25.0 Treatment Plan Continue current medications. Patient admitted for inpatient psychiatric evaluation, medication adjustment and close monitoring The patient's behavior, mood, sleep and appetite will be closely monitored. Patient enrolled in individual and group therapeutic sessions and encouraged to attend. Patient provided with a safe and structured environment. Patient's physical health needs will be addressed by the Hospitalist. Hospitalist Consulted Labs including CBC, CMP, Lipid profile and Hemoglobin A1C levels ordered for baseline reference Social Assessment will be completed and the Nurse Plastics will work with patient and family to ensure a suitable and safe disposition Medication adjustment will be made as clinically indicated Usual Wellness [place]/Preservation: - Start Trazodone 50 mg po QHS & 50 mg po QHS PRN between 10 PM & 2 AM for insomnia - Start Melatonin 5 mg po QHS to promote circadian rhythm - Start [place]-3 for brain health, reduce impulsivity, and as adjunctive treatment for mood disorder, continue upon discharge given overall benefits. - Start B1 prophylaxis with 200 mg po for 5 days The patient agreed on the treatment plan, understood the risk, benefit, alternative treatment, potential consequence of no treatment, and gave informed consent. Initial Certification Inpatient psych services: I certify that the inpatient psychiatric services are required for treatment that could reasonably be expected to improve the patient's condition. Estimated days: 3 Post hospital care: primary care provider, psychiatric provider Assessment and Plan - Patient Problems (1) Schizoaffective disorder, bipolar type Current Visit: Yes Status: Acute Medications and Allergies Allergies Allergy/AdvReac Type Severity Reaction Status Date / Time No Known Drug Allergies Allergy Unknown Verified 09/02/20 03:00 Home Medications Medication Instructions Recorded Confirmed Last Taken Type Atorvastatin 10 mg PO DAILY 09/02/20 09/02/20 Unknown History Divalproex ER [DepaKOTE ER] 500 mg PO BID 09/02/20 09/02/20 Unknown History LORazepam [Lorazepam] 2 mg PO TID PRN 09/02/20 09/02/20 Unknown History Levothyroxine [Synthroid] 75 mcg PO QAM 09/02/20 09/02/20 Unknown History Sodium Chloride 1 gm PO DAILY 09/02/20 09/02/20 Unknown History amLODIPine [Norvasc] 5 mg PO DAILY 09/02/20 09/02/20 Unknown History haloperidoL [Haldol] 5 mg PO BID 09/02/20 09/02/20 Unknown History risperiDONE [Risperdal] 3 mg PO BID 09/02/20 09/02/20 Unknown History Active Meds: Active Medications Amlodipine Besylate (Amlodipine 5 Mg Tab) 5 mg PO DAILY [facility] Last Admin: 09/12/20 09:39 Dose: 5 mg Documented by: Atorvastatin Calcium (Atorvastatin 10 Mg Tab) 10 mg PO QHS [facility] Last Admin: 09/11/20 21:18 Dose: 10 mg Documented by: Clonazepam (Clonazepam 0.5 Mg Tab) 1 mg PO TID [facility] Last Admin: 09/12/20 09:35 Dose: 1 mg Documented by: Divalproex Sodium (Divalproex Dr 500 Mg Tab) 500 mg PO TID [facility] Last Admin: 09/12/20 09:35 Dose: 500 mg Documented by: Haloperidol (Haloperidol 5 Mg Tab) 5 mg PO BID [facility] Last Admin: 09/12/20 09:35 Dose: 5 mg Documented by: Haloperidol Lactate (Haloperidol Lactate 5 Mg/1 Ml Inj) 5 mg IM Q6H PRN PRN Reason: Agitation Last Admin: 09/05/20 17:10 Dose: 5 mg Documented by: Levothyroxine Sodium (Levothyroxine 75 Mcg Tab) 75 mcg PO 0600 [facility] Last Admin: 09/12/20 05:47 Dose: 75 mcg Documented by: Lorazepam (Lorazepam 2 Mg/Ml Vial) 1 mg IM Q12HR PRN PRN Reason: Anxiety Last Admin: 09/05/20 17:26 Dose: 1 mg Documented by: Nicotine (Nicotine 21 Mg/24 Hr Patch) 21 mg TD QDAY [facility] Last Admin: 09/12/20 09:36 Dose: 21 mg Documented by: Sodium Chloride (Sodium Chloride 1 Gm Tab) 1 gm PO DAILY [facility] Last Admin: 09/12/20 09:35 Dose: 1 gm Documented by: Trazodone HCl (Trazodone 50 Mg Tab) 50 mg PO QHS [facility] Last Admin: 09/11/20 21:18 Dose: 50 mg Documented by: Results - Results Labs/Vitals: Laboratory Last Values WBC 8.1 K/mm3 (4.5-11.0) 09/04/20 06:03 RBC 4.32 M/mm3 (3.65-5.03) 09/04/20 06:03 Hgb 12.3 gm/dl (10.1-14.3) 09/04/20 06:03 Hct 36.6 % (30.3-42.9) 09/04/20 06:03 MCV 85 fl (79-97) 09/04/20 06:03 MCH 29 pg (28-32) 09/04/20 06:03 MCHC 34 % (30-34) 09/04/20 06:03 RDW 18.9 % (13.2-15.2) H 09/04/20 06:03 Plt Count 401 K/mm3 (140-440) 09/04/20 06:03 Lymph % (Auto) 24.7 % (13.4-35.0) 09/04/20 06:03 [place] % (Auto) 6.7 % (0.0-7.3) 09/04/20 06:03 Eos % (Auto) 4.0 % (0.0-4.3) 09/04/20 06:03 Baso % (Auto) 1.6 % (0.0-1.8) 09/04/20 06:03 Lymph # (Auto) 2.0 K/mm3 (1.2-5.4) 09/04/20 06:03 [place] # (Auto) 0.5 K/mm3 (0.0-0.8) 09/04/20 06:03 Eos # (Auto) 0.3 K/mm3 (0.0-0.4) 09/04/20 06:03 Baso # (Auto) 0.1 K/mm3 (0.0-0.1) 09/04/20 06:03 Seg Neutrophils % 63.0 % (40.0-70.0) 09/04/20 06:03 Seg Neutrophils # 5.1 K/mm3 (1.8-7.7) 09/04/20 06:03 Sodium 130 mmol/L (137-145) L 09/04/20 06:03 Potassium 4.5 mmol/L (3.6-5.0) 09/04/20 06:03 Chloride 89.4 mmol/L (98-107) L 09/04/20 06:03 Carbon Dioxide 33 mmol/L (22-30) H 09/04/20 06:03 Anion Gap 12 mmol/L 09/04/20 06:03 BUN 15 mg/dL (7-17) 09/04/20 06:03 Creatinine 0.8 mg/dL (0.6-1.2) 09/04/20 06:03 Estimated GFR > 60 ml/min 09/04/20 06:03 BUN/Creatinine Ratio 19 % 09/04/20 06:03 Glucose 83 mg/dL (65-100) 09/04/20 06:03 POC Glucose 92 mg/dL (70-105) 09/02/20 04:57 Hemoglobin A1c 5.6 % (4-6) 09/04/20 06:03 Calcium 8.9 mg/dL (8.4-10.2) 09/04/20 06:03 Total Bilirubin 0.20 mg/dL (0.1-1.2) 09/04/20 06:03 AST 23 units/L (5-40) 09/04/20 06:03 ALT 16 units/L (7-56) 09/04/20 06:03 Alkaline Phosphatase 90 units/L (35-129) 09/04/20 06:03 Total Protein 7.3 g/dL (6.3-8.2) 09/04/20 06:03 Albumin 4.5 g/dL (3.9-5) 09/04/20 06:03 Albumin/Globulin Ratio 1.6 % 09/04/20 06:03 Triglycerides 82 mg/dL (2-149) 09/04/20 06:03 Cholesterol 189 mg/dL (50-199) 09/04/20 06:03 LDL Cholesterol Direct 98 mg/dL (50-130) 09/04/20 06:03 HDL Cholesterol 85 mg/dL (40-59) H 09/04/20 06:03 Cholesterol/HDL Ratio 2.22 % 09/04/20 06:03 TSH 100.000 mlU/mL (0.270-4.200) H 09/04/20 06:03 Valproic Acid 7.6 ug/mL (50-100) L 09/07/20 20:47 Last Vital Signs Temp 97.8 F 09/11/20 22:00 Pulse 71 09/12/20 09:40 Resp 18 09/11/20 22:00 BP 120/77 09/12/20 09:40 Pulse Ox 96 09/12/20 09:40
[2020-09-12] MEDS ORDERED: IBUPROFEN 400 MG TAB PO PRN (10:35)
[2020-09-12] MEDS: traZODone 50 MG TAB PO SCH (21:28)
[2020-09-13] MEDS: LEVOTHYROXINE 75 MCG TAB PO SCH (06:44)
[2020-09-13] MEDS: SODIUM CHLORIDE 1 GM TAB PO SCH (09:26)
[2020-09-13] MEDS: clonazePAM 0.5 MG TAB PO SCH ×3 (09:26→21:16)
[2020-09-13] MEDS: NICOTINE 21 MG/24 HR PATCH TD SCH (09:26)
[2020-09-13] MEDS: DIVALPROEX DR 500 MG TAB PO SCH ×3 (09:27→21:16)
[2020-09-13] MEDS: amLODIPine 5 MG TAB PO SCH (09:27)
[2020-09-13] MEDS: HALOPERIDOL 5 MG TAB PO SCH ×2 (09:27→21:15)
--- NOTE | 2020-09-13 10:13 | Progress Note ---
Subjective Date of service: 09/13/20 Principal diagnosis: Schizoaffective disorder, bipolar type Subjective Comment: Psych Nurse:Last evening the patient was irritable at times. She becomes upset if she has to wait for anything. She especially becomes upset when it is explained that we don't give coffee/caffeine at bedtime. She becomes angry and refuses her nighttime medications. She denies si/hi. Rarely she is heard talking to herself. Her appetite is good. One of her peers stated earlier in the day that the patient was in her room looking through her belongings. When her peer asked her to leave the room she lay on the floor in the hallway. Psych Progress This AM, patient seen in activity room, she states her back is hurting from an injection she got from a doctor in [place] several weeks ago and she needs her pain medication because nurse did not give it to her. Redirected patient she has to ask for it because it is PRN and wont be given unless asked. Patient then asked when she would be allowed to leave here, informed patient when she becomes a good lady and kind to staff, she replied I will be good Reason for continuing acute inpatient psychiatric hospitalization: Haldol increased to 7.5mg BID. improving mood stability, no acute manic phase, concern patients minor episodes of outburst maybe baseline when no given simple things she wants. planning for safety discharge. REVIEW OF SYSTEMS ROS cannot be reliably obtained from the patient due to her confusion. MENTAL STATUS EXAMINATION General Appearance and Behavior: Age appropriate, good hygiene, wearing appropriate clothes, good eye contact,irritable cooperative with questioning. Cooperation: Participating/engaged Psychomotor Behavior: Psychomotor normal Mood: tearful Affect and affective range: labile Thought Process:Circumstantial Thought Content: Flight of ideas, Illogical Speech: pressured, loud volume at times Intellectual Functioning: Fair Suicidal Ideation: Denies SI Homicidal Ideation: Denies HIl Impulse Control: Impaired Insight and Judgment: Limited insight and judgment Memory:impaired Attention: Divided attention impaired Orientation: Alert, oriented, Diagnoses: Assessment and Plan - Psychiatric problem (1) Schizoaffective disorder, bipolar type Current Visit: Yes Status: Acute F25.0 Treatment Plan Continue current medications. Patient admitted for inpatient psychiatric evaluation, medication adjustment and close monitoring The patient's behavior, mood, sleep and appetite will be closely monitored. Patient enrolled in individual and group therapeutic sessions and encouraged to attend. Patient provided with a safe and structured environment. Patient's physical health needs will be addressed by the Hospitalist. Hospitalist Consulted Labs including CBC, CMP, Lipid profile and Hemoglobin A1C levels ordered for baseline reference Social Assessment will be completed and the Production Quality Manager will work with patient and family to ensure a suitable and safe disposition Medication adjustment will be made as clinically indicated Usual Wellness [place]/Preservation: - Start Trazodone 50 mg po QHS & 50 mg po QHS PRN between 10 PM & 2 AM for insomnia - Start Melatonin 5 mg po QHS to promote circadian rhythm - Start [place]-3 for brain health, reduce impulsivity, and as adjunctive treatment for mood disorder, continue upon discharge given overall benefits. - Start B1 prophylaxis with 200 mg po for 5 days The patient agreed on the treatment plan, understood the risk, benefit, alternative treatment, potential consequence of no treatment, and gave informed consent. Initial Certification Inpatient psych services: I certify that the inpatient psychiatric services are required for treatment that could reasonably be expected to improve the patient's condition. Estimated days: 3 Post hospital care: primary care provider, psychiatric provider Assessment and Plan - Patient Problems (1) Schizoaffective disorder, bipolar type Current Visit: Yes Status: Acute Medications and Allergies Allergies Allergy/AdvReac Type Severity Reaction Status Date / Time No Known Drug Allergies Allergy Unknown Verified 09/02/20 03:00 Home Medications Medication Instructions Recorded Confirmed Last Taken Type Atorvastatin 10 mg PO DAILY 09/02/20 09/02/20 Unknown History Divalproex ER [DepaKOTE ER] 500 mg PO BID 09/02/20 09/02/20 Unknown History LORazepam [Lorazepam] 2 mg PO TID PRN 09/02/20 09/02/20 Unknown History Levothyroxine [Synthroid] 75 mcg PO QAM 09/02/20 09/02/20 Unknown History Sodium Chloride 1 gm PO DAILY 09/02/20 09/02/20 Unknown History amLODIPine [Norvasc] 5 mg PO DAILY 09/02/20 09/02/20 Unknown History haloperidoL [Haldol] 5 mg PO BID 09/02/20 09/02/20 Unknown History risperiDONE [Risperdal] 3 mg PO BID 09/02/20 09/02/20 Unknown History Active Meds: Active Medications Amlodipine Besylate (Amlodipine 5 Mg Tab) 5 mg PO DAILY [facility] Last Admin: 09/13/20 09:27 Dose: 5 mg Documented by: Atorvastatin Calcium (Atorvastatin 10 Mg Tab) 10 mg PO QHS [facility] Last Admin: 09/12/20 21:28 Dose: 10 mg Documented by: Clonazepam (Clonazepam 0.5 Mg Tab) 1 mg PO TID [facility] Last Admin: 09/13/20 09:26 Dose: 1 mg Documented by: Divalproex Sodium (Divalproex Dr 500 Mg Tab) 500 mg PO TID [facility] Last Admin: 09/13/20 09:27 Dose: 500 mg Documented by: Haloperidol (Haloperidol 5 Mg Tab) 5 mg PO BID [facility] Last Admin: 09/13/20 09:27 Dose: 5 mg Documented by: Haloperidol Lactate (Haloperidol Lactate 5 Mg/1 Ml Inj) 5 mg IM Q6H PRN PRN Reason: Agitation Last Admin: 09/05/20 17:10 Dose: 5 mg Documented by: Ibuprofen (Ibuprofen 400 Mg Tab) 400 mg PO Q6H PRN PRN Reason: Pain, Mild (1-3) Levothyroxine Sodium (Levothyroxine 75 Mcg Tab) 75 mcg PO 0600 [facility] Last Admin: 09/13/20 06:44 Dose: 75 mcg Documented by: Lorazepam (Lorazepam 2 Mg/Ml Vial) 1 mg IM Q12HR PRN PRN Reason: Anxiety Last Admin: 09/05/20 17:26 Dose: 1 mg Documented by: Nicotine (Nicotine 21 Mg/24 Hr Patch) 21 mg TD QDAY [facility] Last Admin: 09/13/20 09:26 Dose: 21 mg Documented by: Sodium Chloride (Sodium Chloride 1 Gm Tab) 1 gm PO DAILY [facility] Last Admin: 09/13/20 09:26 Dose: 1 gm Documented by: Trazodone HCl (Trazodone 50 Mg Tab) 50 mg PO QHS [facility] Last Admin: 09/12/20 21:28 Dose: 50 mg Documented by: Results - Results Labs/Vitals: Laboratory Last Values WBC 8.1 K/mm3 (4.5-11.0) 09/04/20 06:03 RBC 4.32 M/mm3 (3.65-5.03) 09/04/20 06:03 Hgb 12.3 gm/dl (10.1-14.3) 09/04/20 06:03 Hct 36.6 % (30.3-42.9) 09/04/20 06:03 MCV 85 fl (79-97) 09/04/20 06:03 MCH 29 pg (28-32) 09/04/20 06:03 MCHC 34 % (30-34) 09/04/20 06:03 RDW 18.9 % (13.2-15.2) H 09/04/20 06:03 Plt Count 401 K/mm3 (140-440) 09/04/20 06:03 Lymph % (Auto) 24.7 % (13.4-35.0) 09/04/20 06:03 [place] % (Auto) 6.7 % (0.0-7.3) 09/04/20 06:03 Eos % (Auto) 4.0 % (0.0-4.3) 09/04/20 06:03 Baso % (Auto) 1.6 % (0.0-1.8) 09/04/20 06:03 Lymph # (Auto) 2.0 K/mm3 (1.2-5.4) 09/04/20 06:03 [place] # (Auto) 0.5 K/mm3 (0.0-0.8) 09/04/20 06:03 Eos # (Auto) 0.3 K/mm3 (0.0-0.4) 09/04/20 06:03 Baso # (Auto) 0.1 K/mm3 (0.0-0.1) 09/04/20 06:03 Seg Neutrophils % 63.0 % (40.0-70.0) 09/04/20 06:03 Seg Neutrophils # 5.1 K/mm3 (1.8-7.7) 09/04/20 06:03 Sodium 130 mmol/L (137-145) L 09/04/20 06:03 Potassium 4.5 mmol/L (3.6-5.0) 09/04/20 06:03 Chloride 89.4 mmol/L (98-107) L 09/04/20 06:03 Carbon Dioxide 33 mmol/L (22-30) H 09/04/20 06:03 Anion Gap 12 mmol/L 09/04/20 06:03 BUN 15 mg/dL (7-17) 09/04/20 06:03 Creatinine 0.8 mg/dL (0.6-1.2) 09/04/20 06:03 Estimated GFR > 60 ml/min 09/04/20 06:03 BUN/Creatinine Ratio 19 % 09/04/20 06:03 Glucose 83 mg/dL (65-100) 09/04/20 06:03 POC Glucose 92 mg/dL (70-105) 09/02/20 04:57 Hemoglobin A1c 5.6 % (4-6) 09/04/20 06:03 Calcium 8.9 mg/dL (8.4-10.2) 09/04/20 06:03 Total Bilirubin 0.20 mg/dL (0.1-1.2) 09/04/20 06:03 AST 23 units/L (5-40) 09/04/20 06:03 ALT 16 units/L (7-56) 09/04/20 06:03 Alkaline Phosphatase 90 units/L (35-129) 09/04/20 06:03 Total Protein 7.3 g/dL (6.3-8.2) 09/04/20 06:03 Albumin 4.5 g/dL (3.9-5) 09/04/20 06:03 Albumin/Globulin Ratio 1.6 % 09/04/20 06:03 Triglycerides 82 mg/dL (2-149) 09/04/20 06:03 Cholesterol 189 mg/dL (50-199) 09/04/20 06:03 LDL Cholesterol Direct 98 mg/dL (50-130) 09/04/20 06:03 HDL Cholesterol 85 mg/dL (40-59) H 09/04/20 06:03 Cholesterol/HDL Ratio 2.22 % 09/04/20 06:03 TSH 100.000 mlU/mL (0.270-4.200) H 09/04/20 06:03 Valproic Acid 7.6 ug/mL (50-100) L 09/07/20 20:47 Last Vital Signs Temp 97.9 F 09/13/20 08:15 Pulse 71 09/13/20 08:15 Resp 18 09/13/20 08:15 BP 126/83 09/13/20 08:15 Pulse Ox 96 09/13/20 08:15
--- NOTE | 2020-09-13 20:33 | Progress Note ---
Assessment and Plan - Patient Problems (1) HTN (hypertension) Current Visit: Yes Status: Acute Qualifiers: Hypertension type: essential hypertension Qualified Code(s): I10 - Essential (primary) hypertension Plan to address problem: Monitor BP q shift, continue medical management (2) HLD (hyperlipidemia) Current Visit: Yes Status: Acute Plan to address problem: Low cholesterol diet, statin therapy as clinically indicated. (3) Schizoaffective disorder, bipolar type Current Visit: Yes Status: Acute Plan to address problem: continue medical management. History Interval history: 60 YO Female with HTN, HLD, Hypothyroidism, Schizophrenia admitted to [facility] for Psychiatric stabilization. No reported nursing events. Pt denies pain. Hospitalist Physical - Constitutional Vitals: Temp Pulse Resp BP Pulse Ox 97.9 F 71 18 126/83 96 09/13/20 08:15 09/13/20 08:15 09/13/20 08:15 09/13/20 08:15 09/13/20 08:15 General appearance: Present: no acute distress - EENT Eyes: Present: PERRL, EOM intact ENT: hearing intact - Neck Neck: Present: supple - Respiratory Respiratory effort: normal Respiratory: bilateral: CTA - Cardiovascular Rhythm: regular Heart Sounds: Present: S1 & S2 - Extremities Extremities: no ischemia Peripheral Pulses: within normal limits - Abdominal General gastrointestinal: soft, non-tender, non-distended - Integumentary Integumentary: Present: clear, dry - Psychiatric Psychiatric: cooperative - Neurologic Neurologic: CNII-XII intact Results - Labs CBC & Chem 7: 09/04/20 06:03 09/04/20 06:03 Labs: Laboratory Last Values WBC 8.1 K/mm3 (4.5-11.0) 09/04/20 06:03 RBC 4.32 M/mm3 (3.65-5.03) 09/04/20 06:03 Hgb 12.3 gm/dl (10.1-14.3) 09/04/20 06:03 Hct 36.6 % (30.3-42.9) 09/04/20 06:03 MCV 85 fl (79-97) 09/04/20 06:03 MCH 29 pg (28-32) 09/04/20 06:03 MCHC 34 % (30-34) 09/04/20 06:03 RDW 18.9 % (13.2-15.2) H 09/04/20 06:03 Plt Count 401 K/mm3 (140-440) 09/04/20 06:03 Lymph % (Auto) 24.7 % (13.4-35.0) 09/04/20 06:03 Mineral % (Auto) 6.7 % (0.0-7.3) 09/04/20 06:03 Eos % (Auto) 4.0 % (0.0-4.3) 09/04/20 06:03 Baso % (Auto) 1.6 % (0.0-1.8) 09/04/20 06:03 Lymph # (Auto) 2.0 K/mm3 (1.2-5.4) 09/04/20 06:03 Mineral # (Auto) 0.5 K/mm3 (0.0-0.8) 09/04/20 06:03 Eos # (Auto) 0.3 K/mm3 (0.0-0.4) 09/04/20 06:03 Baso # (Auto) 0.1 K/mm3 (0.0-0.1) 09/04/20 06:03 Seg Neutrophils % 63.0 % (40.0-70.0) 09/04/20 06:03 Seg Neutrophils # 5.1 K/mm3 (1.8-7.7) 09/04/20 06:03 Sodium 130 mmol/L (137-145) L 09/04/20 06:03 Potassium 4.5 mmol/L (3.6-5.0) 09/04/20 06:03 Chloride 89.4 mmol/L (98-107) L 09/04/20 06:03 Carbon Dioxide 33 mmol/L (22-30) H 09/04/20 06:03 Anion Gap 12 mmol/L 09/04/20 06:03 BUN 15 mg/dL (7-17) 09/04/20 06:03 Creatinine 0.8 mg/dL (0.6-1.2) 09/04/20 06:03 Estimated GFR > 60 ml/min 09/04/20 06:03 BUN/Creatinine Ratio 19 % 09/04/20 06:03 Glucose 83 mg/dL (65-100) 09/04/20 06:03 POC Glucose 92 mg/dL (70-105) 09/02/20 04:57 Hemoglobin A1c 5.6 % (4-6) 09/04/20 06:03 Calcium 8.9 mg/dL (8.4-10.2) 09/04/20 06:03 Total Bilirubin 0.20 mg/dL (0.1-1.2) 09/04/20 06:03 AST 23 units/L (5-40) 09/04/20 06:03 ALT 16 units/L (7-56) 09/04/20 06:03 Alkaline Phosphatase 90 units/L (35-129) 09/04/20 06:03 Total Protein 7.3 g/dL (6.3-8.2) 09/04/20 06:03 Albumin 4.5 g/dL (3.9-5) 09/04/20 06:03 Albumin/Globulin Ratio 1.6 % 09/04/20 06:03 Triglycerides 82 mg/dL (2-149) 09/04/20 06:03 Cholesterol 189 mg/dL (50-199) 09/04/20 06:03 LDL Cholesterol Direct 98 mg/dL (50-130) 09/04/20 06:03 HDL Cholesterol 85 mg/dL (40-59) H 09/04/20 06:03 Cholesterol/HDL Ratio 2.22 % 09/04/20 06:03 TSH 100.000 mlU/mL (0.270-4.200) H 09/04/20 06:03 Valproic Acid 7.6 ug/mL (50-100) L 09/07/20 20:47 Don/IV: Voiding Method Toilet Active Medications - Current Medications Current Medications: Generic Name Dose Route Start Last Admin Trade Name Freq PRN Reason Stop Dose Admin Amlodipine Besylate 5 mg 09/04/20 10:00 09/13/20 09:27 Amlodipine 5 Mg Tab PO 5 mg DAILY KARMEN Administration Atorvastatin Calcium 10 mg 09/04/20 22:00 09/12/20 21:28 Atorvastatin 10 Mg Tab PO 10 mg QHS KARMEN Administration Clonazepam 0.5 mg 09/13/20 10:12 09/13/20 14:00 Clonazepam 0.5 Mg Tab PO 0.5 mg TID KARMEN Administration Divalproex Sodium 500 mg 09/08/20 14:00 09/13/20 13:[address] 500 Mg Tab PO 500 mg TID KARMEN Administration Haloperidol 7.5 mg 09/13/20 10:13 Haloperidol 5 Mg Tab PO BID KARMEN Haloperidol Lactate 5 mg 09/02/20 03:22 09/05/20 17:10 Haloperidol Lactate 5 Mg/1 Ml Inj IM 5 mg Q6H PRN Administration Agitation Ibuprofen 400 mg 09/12/20 10:35 Ibuprofen 400 Mg Tab PO Q6H PRN Pain, Mild (1-3) Levothyroxine Sodium 75 mcg 09/04/20 10:00 09/13/20 06:44 Levothyroxine 75 Mcg Tab PO 75 mcg 0600 KARMEN Administration Lorazepam 1 mg 09/02/20 10:00 09/05/20 17:26 Lorazepam 2 Mg/Ml Vial IM 1 mg Q12HR PRN Administration Anxiety Nicotine 21 mg 09/02/20 10:00 09/13/20 09:26 Nicotine 21 Mg/24 Hr Patch TD 21 mg QDAY KARMEN Administration Sodium Chloride 1 gm 09/04/20 10:00 09/13/20 09:26 Sodium Chloride 1 Gm Tab PO 1 gm DAILY KARMEN Administration Trazodone HCl 50 mg 09/02/20 22:00 09/12/20 21:28 Trazodone 50 Mg Tab PO 50 mg QHS KARMEN Administration Nutrition/Malnutrition Assess - Dietary Evaluation Nutrition/Malnutrition Findings: Nutrition Notes Start: 09/09/20 07: 41 Freq: Status: Active Protocol: Document 09/09/20 07:41 LP (Rec: 09/09/20 07:42 LP [id number]) Nutrition Notes Need for Assessment generated from: LOS Initial or Follow up Brief Note Subjective/Other Information Screen for LOS. Pt consuming 75-100% of meals. Nutrition Intervention Revisit per MD consult or patient Sign Off request:
[2020-09-13] MEDS: traZODone 50 MG TAB PO SCH (21:16)
[2020-09-14] MEDS: LEVOTHYROXINE 75 MCG TAB PO SCH (05:46)
--- NOTE | 2020-09-14 07:53 | Progress Note ---
Subjective Date of service: 09/14/20 Principal diagnosis: Schizoaffective disorder, bipolar type Subjective Comment: Psych Nurse:Last evening the patient was calm and cooperative. She denied si/hi/ah/vh. She spent time between her room and the activity room. Her interactions were more appropriate than since her arrival. Her appetite is good. She was given hot decaf tea so she would be medication compliant. Overnight she rested quietly until being awoken by a peer. She yelled out for peer to be quiet. She was able to go back to sleep. She presents as sleeping 8 hours. Will continue to monitor patient for safety. Psych Progress Patient in her room today, sleeping and not wanting to be disturbed. Reason for continuing acute inpatient psychiatric hospitalization:Haldol increased yesterday. Continue to observe for mood stability REVIEW OF SYSTEMS ROS cannot be reliably obtained from the patient due to her confusion. MENTAL STATUS EXAMINATION General Appearance and Behavior: Age appropriate, good hygiene, wearing appropriate clothes, good eye contact,irritable cooperative with questioning. Cooperation: Participating/engaged Psychomotor Behavior: Psychomotor normal Mood: tearful Affect and affective range: labile Thought Process:Circumstantial Thought Content: Flight of ideas, Illogical Speech: pressured, loud volume at times Intellectual Functioning: Fair Suicidal Ideation: Denies SI Homicidal Ideation: Denies HIl Impulse Control: Impaired Insight and Judgment: Limited insight and judgment Memory:impaired Attention: Divided attention impaired Orientation: Alert, oriented, Diagnoses: Assessment and Plan - Psychiatric problem (1) Schizoaffective disorder, bipolar type Current Visit: Yes Status: Acute F25.0 Treatment Plan Continue current medications. Patient admitted for inpatient psychiatric evaluation, medication adjustment and close monitoring The patient's behavior, mood, sleep and appetite will be closely monitored. Patient enrolled in individual and group therapeutic sessions and encouraged to attend. Patient provided with a safe and structured environment. Patient's physical health needs will be addressed by the Hospitalist. Hospitalist Consulted Labs including CBC, CMP, Lipid profile and Hemoglobin A1C levels ordered for baseline reference Social Assessment will be completed and the Regional Engagement Consultant will work with patient and family to ensure a suitable and safe disposition Medication adjustment will be made as clinically indicated Usual Wellness [employer]/Preservation: - Start Trazodone 50 mg po QHS & 50 mg po QHS PRN between 10 PM & 2 AM for insomnia - Start Melatonin 5 mg po QHS to promote circadian rhythm - Start [place]-3 for brain health, reduce impulsivity, and as adjunctive treatment for mood disorder, continue upon discharge given overall benefits. - Start B1 prophylaxis with 200 mg po for 5 days The patient agreed on the treatment plan, understood the risk, benefit, alternative treatment, potential consequence of no treatment, and gave informed consent. Initial Certification Inpatient psych services: I certify that the inpatient psychiatric services are required for treatment that could reasonably be expected to improve the patient's condition. Estimated days: 3 Post hospital care: primary care provider, psychiatric provider Assessment and Plan - Patient Problems (1) Schizoaffective disorder, bipolar type Current Visit: Yes Status: Acute Medications and Allergies Allergies Allergy/AdvReac Type Severity Reaction Status Date / Time No Known Drug Allergies Allergy Unknown Verified 09/02/20 03:00 Home Medications Medication Instructions Recorded Confirmed Last Taken Type Atorvastatin 10 mg PO DAILY 09/02/20 09/02/20 Unknown History Divalproex ER [DepaKOTE ER] 500 mg PO BID 09/02/20 09/02/20 Unknown History LORazepam [Lorazepam] 2 mg PO TID PRN 09/02/20 09/02/20 Unknown History Levothyroxine [Synthroid] 75 mcg PO QAM 09/02/20 09/02/20 Unknown History Sodium Chloride 1 gm PO DAILY 09/02/20 09/02/20 Unknown History amLODIPine [Norvasc] 5 mg PO DAILY 09/02/20 09/02/20 Unknown History haloperidoL [Haldol] 5 mg PO BID 09/02/20 09/02/20 Unknown History risperiDONE [Risperdal] 3 mg PO BID 09/02/20 09/02/20 Unknown History Active Meds: Active Medications Amlodipine Besylate (Amlodipine 5 Mg Tab) 5 mg PO DAILY [facility] Last Admin: 09/13/20 09:27 Dose: 5 mg Documented by: Atorvastatin Calcium (Atorvastatin 10 Mg Tab) 10 mg PO QHS [facility] Last Admin: 09/13/20 21:16 Dose: 10 mg Documented by: Clonazepam (Clonazepam 0.5 Mg Tab) 0.5 mg PO TID [facility] Last Admin: 09/13/20 21:16 Dose: 0.5 mg Documented by: Divalproex Sodium (Divalproex Dr 500 Mg Tab) 500 mg PO TID [facility] Last Admin: 09/13/20 21:16 Dose: 500 mg Documented by: Haloperidol (Haloperidol 5 Mg Tab) 7.5 mg PO BID [facility] Last Admin: 09/13/20 21:15 Dose: 7.5 mg Documented by: Haloperidol Lactate (Haloperidol Lactate 5 Mg/1 Ml Inj) 5 mg IM Q6H PRN PRN Reason: Agitation Last Admin: 09/05/20 17:10 Dose: 5 mg Documented by: Ibuprofen (Ibuprofen 400 Mg Tab) 400 mg PO Q6H PRN PRN Reason: Pain, Mild (1-3) Levothyroxine Sodium (Levothyroxine 75 Mcg Tab) 75 mcg PO 0600 [facility] Last Admin: 09/14/20 05:46 Dose: 75 mcg Documented by: Lorazepam (Lorazepam 2 Mg/Ml Vial) 1 mg IM Q12HR PRN PRN Reason: Anxiety Last Admin: 09/05/20 17:26 Dose: 1 mg Documented by: Nicotine (Nicotine 21 Mg/24 Hr Patch) 21 mg TD QDAY [facility] Last Admin: 09/13/20 09:26 Dose: 21 mg Documented by: Sodium Chloride (Sodium Chloride 1 Gm Tab) 1 gm PO DAILY [facility] Last Admin: 09/13/20 09:26 Dose: 1 gm Documented by: Trazodone HCl (Trazodone 50 Mg Tab) 50 mg PO QHS [facility] Last Admin: 09/13/20 21:16 Dose: 50 mg Documented by: Results - Results Labs/Vitals: Laboratory Last Values WBC 8.1 K/mm3 (4.5-11.0) 09/04/20 06:03 RBC 4.32 M/mm3 (3.65-5.03) 09/04/20 06:03 Hgb 12.3 gm/dl (10.1-14.3) 09/04/20 06:03 Hct 36.6 % (30.3-42.9) 09/04/20 06:03 MCV 85 fl (79-97) 09/04/20 06:03 MCH 29 pg (28-32) 09/04/20 06:03 MCHC 34 % (30-34) 09/04/20 06:03 RDW 18.9 % (13.2-15.2) H 09/04/20 06:03 Plt Count 401 K/mm3 (140-440) 09/04/20 06:03 Lymph % (Auto) 24.7 % (13.4-35.0) 09/04/20 06:03 [place] % (Auto) 6.7 % (0.0-7.3) 09/04/20 06:03 Eos % (Auto) 4.0 % (0.0-4.3) 09/04/20 06:03 Baso % (Auto) 1.6 % (0.0-1.8) 09/04/20 06:03 Lymph # (Auto) 2.0 K/mm3 (1.2-5.4) 09/04/20 06:03 [place] # (Auto) 0.5 K/mm3 (0.0-0.8) 09/04/20 06:03 Eos # (Auto) 0.3 K/mm3 (0.0-0.4) 09/04/20 06:03 Baso # (Auto) 0.1 K/mm3 (0.0-0.1) 09/04/20 06:03 Seg Neutrophils % 63.0 % (40.0-70.0) 09/04/20 06:03 Seg Neutrophils # 5.1 K/mm3 (1.8-7.7) 09/04/20 06:03 Sodium 130 mmol/L (137-145) L 09/04/20 06:03 Potassium 4.5 mmol/L (3.6-5.0) 09/04/20 06:03 Chloride 89.4 mmol/L (98-107) L 09/04/20 06:03 Carbon Dioxide 33 mmol/L (22-30) H 09/04/20 06:03 Anion Gap 12 mmol/L 09/04/20 06:03 BUN 15 mg/dL (7-17) 09/04/20 06:03 Creatinine 0.8 mg/dL (0.6-1.2) 09/04/20 06:03 Estimated GFR > 60 ml/min 09/04/20 06:03 BUN/Creatinine Ratio 19 % 09/04/20 06:03 Glucose 83 mg/dL (65-100) 09/04/20 06:03 POC Glucose 92 mg/dL (70-105) 09/02/20 04:57 Hemoglobin A1c 5.6 % (4-6) 09/04/20 06:03 Calcium 8.9 mg/dL (8.4-10.2) 09/04/20 06:03 Total Bilirubin 0.20 mg/dL (0.1-1.2) 09/04/20 06:03 AST 23 units/L (5-40) 09/04/20 06:03 ALT 16 units/L (7-56) 09/04/20 06:03 Alkaline Phosphatase 90 units/L (35-129) 09/04/20 06:03 Total Protein 7.3 g/dL (6.3-8.2) 09/04/20 06:03 Albumin 4.5 g/dL (3.9-5) 09/04/20 06:03 Albumin/Globulin Ratio 1.6 % 09/04/20 06:03 Triglycerides 82 mg/dL (2-149) 09/04/20 06:03 Cholesterol 189 mg/dL (50-199) 09/04/20 06:03 LDL Cholesterol Direct 98 mg/dL (50-130) 09/04/20 06:03 HDL Cholesterol 85 mg/dL (40-59) H 09/04/20 06:03 Cholesterol/HDL Ratio 2.22 % 09/04/20 06:03 TSH 100.000 mlU/mL (0.270-4.200) H 09/04/20 06:03 Valproic Acid 7.6 ug/mL (50-100) L 09/07/20 20:47 Last Vital Signs Temp 98.0 F 09/13/20 19:31 Pulse 68 09/13/20 19:31 Resp 20 09/13/20 19:31 BP 144/87 09/13/20 19:31 Pulse Ox 98 09/13/20 19:31
[2020-09-14] MEDS: DIVALPROEX DR 500 MG TAB PO SCH ×3 (10:14→20:58)
[2020-09-14] MEDS: SODIUM CHLORIDE 1 GM TAB PO SCH (10:14)
[2020-09-14] MEDS: amLODIPine 5 MG TAB PO SCH (10:14)
[2020-09-14] MEDS: NICOTINE 21 MG/24 HR PATCH TD SCH (10:22)
[2020-09-14] MEDS: clonazePAM 0.5 MG TAB PO SCH ×3 (10:22→21:04)
[2020-09-14] MEDS: HALOPERIDOL 5 MG TAB PO SCH ×2 (10:23→21:04)
--- NOTE | 2020-09-14 19:54 | Progress Note ---
Assessment and Plan - Patient Problems (1) HTN (hypertension) Current Visit: Yes Status: Acute Qualifiers: Hypertension type: essential hypertension Qualified Code(s): I10 - Essential (primary) hypertension Plan to address problem: Monitor BP q shift, continue medical management (2) HLD (hyperlipidemia) Current Visit: Yes Status: Acute Plan to address problem: Low cholesterol diet, statin therapy as clinically indicated. (3) Schizoaffective disorder, bipolar type Current Visit: Yes Status: Acute Plan to address problem: continue medical management. History Interval history: 60 YO Female with HTN, HLD, Hypothyroidism, Schizophrenia admitted to [facility] unit for Psychiatric stabilization. No reported nursing events. Pt denies pain. Hospitalist Physical - Constitutional Vitals: Temp Pulse Resp BP Pulse Ox 98.7 F 71 18 101/61 96 09/14/20 10:20 09/14/20 10:20 09/14/20 10:20 09/14/20 10:20 09/14/20 10:20 General appearance: Present: no acute distress - EENT Eyes: Present: PERRL ENT: hearing intact - Neck Neck: Present: supple - Respiratory Respiratory effort: normal Respiratory: bilateral: CTA - Cardiovascular Rhythm: regular Heart Sounds: Present: S1 & S2 - Extremities Extremities: no ischemia Peripheral Pulses: within normal limits - Abdominal General gastrointestinal: soft, non-tender, non-distended - Integumentary Integumentary: Present: clear, dry - Psychiatric Psychiatric: cooperative - Neurologic Neurologic: CNII-XII intact Results - Labs CBC & Chem 7: 09/04/20 06:03 09/04/20 06:03 Labs: Laboratory Last Values WBC 8.1 K/mm3 (4.5-11.0) 09/04/20 06:03 RBC 4.32 M/mm3 (3.65-5.03) 09/04/20 06:03 Hgb 12.3 gm/dl (10.1-14.3) 09/04/20 06:03 Hct 36.6 % (30.3-42.9) 09/04/20 06:03 MCV 85 fl (79-97) 09/04/20 06:03 MCH 29 pg (28-32) 09/04/20 06:03 MCHC 34 % (30-34) 09/04/20 06:03 RDW 18.9 % (13.2-15.2) H 09/04/20 06:03 Plt Count 401 K/mm3 (140-440) 09/04/20 06:03 Lymph % (Auto) 24.7 % (13.4-35.0) 09/04/20 06:03 [place] % (Auto) 6.7 % (0.0-7.3) 09/04/20 06:03 Eos % (Auto) 4.0 % (0.0-4.3) 09/04/20 06:03 Baso % (Auto) 1.6 % (0.0-1.8) 09/04/20 06:03 Lymph # (Auto) 2.0 K/mm3 (1.2-5.4) 09/04/20 06:03 [place] # (Auto) 0.5 K/mm3 (0.0-0.8) 09/04/20 06:03 Eos # (Auto) 0.3 K/mm3 (0.0-0.4) 09/04/20 06:03 Baso # (Auto) 0.1 K/mm3 (0.0-0.1) 09/04/20 06:03 Seg Neutrophils % 63.0 % (40.0-70.0) 09/04/20 06:03 Seg Neutrophils # 5.1 K/mm3 (1.8-7.7) 09/04/20 06:03 Sodium 130 mmol/L (137-145) L 09/04/20 06:03 Potassium 4.5 mmol/L (3.6-5.0) 09/04/20 06:03 Chloride 89.4 mmol/L (98-107) L 09/04/20 06:03 Carbon Dioxide 33 mmol/L (22-30) H 09/04/20 06:03 Anion Gap 12 mmol/L 09/04/20 06:03 BUN 15 mg/dL (7-17) 09/04/20 06:03 Creatinine 0.8 mg/dL (0.6-1.2) 09/04/20 06:03 Estimated GFR > 60 ml/min 09/04/20 06:03 BUN/Creatinine Ratio 19 % 09/04/20 06:03 Glucose 83 mg/dL (65-100) 09/04/20 06:03 POC Glucose 92 mg/dL (70-105) 09/02/20 04:57 Hemoglobin A1c 5.6 % (4-6) 09/04/20 06:03 Calcium 8.9 mg/dL (8.4-10.2) 09/04/20 06:03 Total Bilirubin 0.20 mg/dL (0.1-1.2) 09/04/20 06:03 AST 23 units/L (5-40) 09/04/20 06:03 ALT 16 units/L (7-56) 09/04/20 06:03 Alkaline Phosphatase 90 units/L (35-129) 09/04/20 06:03 Total Protein 7.3 g/dL (6.3-8.2) 09/04/20 06:03 Albumin 4.5 g/dL (3.9-5) 09/04/20 06:03 Albumin/Globulin Ratio 1.6 % 09/04/20 06:03 Triglycerides 82 mg/dL (2-149) 09/04/20 06:03 Cholesterol 189 mg/dL (50-199) 09/04/20 06:03 LDL Cholesterol Direct 98 mg/dL (50-130) 09/04/20 06:03 HDL Cholesterol 85 mg/dL (40-59) H 09/04/20 06:03 Cholesterol/HDL Ratio 2.22 % 09/04/20 06:03 TSH 100.000 mlU/mL (0.270-4.200) H 09/04/20 06:03 Valproic Acid 7.6 ug/mL (50-100) L 09/07/20 20:47 Don/IV: Voiding Method Toilet Active Medications - Current Medications Current Medications: Generic Name Dose Route Start Last Admin Trade Name Freq PRN Reason Stop Dose Admin Amlodipine Besylate 5 mg 09/04/20 10:00 09/14/20 10:14 Amlodipine 5 Mg Tab PO 5 mg DAILY KARMEN Administration Atorvastatin Calcium 10 mg 09/04/20 22:00 09/13/20 21:16 Atorvastatin 10 Mg Tab PO 10 mg QHS KARMEN Administration Clonazepam 0.5 mg 09/13/20 10:12 09/14/20 15:47 Clonazepam 0.5 Mg Tab PO 0.5 mg TID KARMEN Administration Divalproex Sodium 500 mg 09/08/20 14:00 09/14/20 15:[address] 500 Mg Tab PO 500 mg TID KARMEN Administration Haloperidol 7.5 mg 09/13/20 10:13 09/14/20 10:23 Haloperidol 5 Mg Tab PO 7.5 mg BID KARMEN Administration Haloperidol Lactate 5 mg 09/02/20 03:22 09/05/20 17:10 Haloperidol Lactate 5 Mg/1 Ml Inj IM 5 mg Q6H PRN Administration Agitation Ibuprofen 400 mg 09/12/20 10:35 Ibuprofen 400 Mg Tab PO Q6H PRN Pain, Mild (1-3) Levothyroxine Sodium 75 mcg 09/04/20 10:00 09/14/20 05:46 Levothyroxine 75 Mcg Tab PO 75 mcg 0600 KARMEN Administration Lorazepam 1 mg 09/02/20 10:00 09/05/20 17:26 Lorazepam 2 Mg/Ml Vial IM 1 mg Q12HR PRN Administration Anxiety Nicotine 21 mg 09/02/20 10:00 09/14/20 10:22 Nicotine 21 Mg/24 Hr Patch TD 21 mg QDAY KARMEN Administration Sodium Chloride 1 gm 09/04/20 10:00 09/14/20 10:14 Sodium Chloride 1 Gm Tab PO 1 gm DAILY KARMEN Administration Trazodone HCl 50 mg 09/02/20 22:00 09/13/20 21:16 Trazodone 50 Mg Tab PO 50 mg QHS KARMEN Administration Nutrition/Malnutrition Assess - Dietary Evaluation Nutrition/Malnutrition Findings: Nutrition Notes Start: 09/09/20 07:41 Freq: Status: Active Protocol: Document 09/09/20 07:41 LP (Rec: 09/09/20 07:42 LP [id number]) Nutrition Notes Need for Assessment generated from: LOS Initial or Follow up Brief Note Subjective/Other Information Screen for LOS. Pt consuming 75-100% of meals. Nutrition Intervention Revisit per MD consult or patient Sign Off request:
[2020-09-14] MEDS: traZODone 50 MG TAB PO SCH (21:04)
[2020-09-14 23:46] VITALS: BP 129/78
[2020-09-15] MEDS: LEVOTHYROXINE 75 MCG TAB PO SCH (05:50)
--- NOTE | 2020-09-15 07:50 | Progress Note ---
Subjective Date of service: 09/15/20 Principal diagnosis: Schizoaffective disorder, bipolar type Subjective Comment: Psych Nurse:pt spent last night in activity room watching television, disorganized, unkempt, medication with compliant, good appetite, no behavioral issues, no distress noted, pt slept all night. forest and conservation worker (LEONOR) conducted psychoeducational group on "Triggers and Coping skills." SW educated the pt on what triggers are, how triggers can cause disruption in day to day life, recognizing triggers as well as coping skills for triggers. SW provided pt with the opportunity to participate in group with feedback and discussion about her own triggers and potential coping skills. Pt was talking out of turn throughout the group session. Pt has to be redirected several times during group. Towards the end of group, the pt was cooperative and even answered a question. Psych Progress Patient seen, continues to be calm and cooperative, listens to questions before providing answers, med compliant and able to make simple reasonable requesting, no acute psychiatric manic like symptoms. Reason for continuing acute inpatient psychiatric hospitalization:Discharge ready REVIEW OF SYSTEMS ROS cannot be reliably obtained from the patient due to her confusion. MENTAL STATUS EXAMINATION General Appearance and Behavior: Age appropriate, good hygiene, wearing appropriate clothes, good eye contact,irritable cooperative with questioning. Cooperation: Participating/engaged Psychomotor Behavior: Psychomotor normal Mood: tearful Affect and affective range: labile Thought Process:Circumstantial Thought Content: illogical Speech: pressured, loud volume at times Intellectual Functioning: Fair Suicidal Ideation: Denies SI Homicidal Ideation: Denies HIl Impulse Control: Impaired Insight and Judgment: Limited insight and judgment Memory:impaired Attention: Divided attention impaired Orientation: Alert, oriented, Diagnoses: Assessment and Plan - Psychiatric problem (1) Schizoaffective disorder, bipolar type Current Visit: Yes Status: Acute F25.0 Treatment Plan Continue current medications. Patient admitted for inpatient psychiatric evaluation, medication adjustment and close monitoring The patient's behavior, mood, sleep and appetite will be closely monitored. Patient enrolled in individual and group therapeutic sessions and encouraged to attend. Patient provided with a safe and structured environment. Patient's physical health needs will be addressed by the Hospitalist. Hospitalist Consulted Labs including CBC, CMP, Lipid profile and Hemoglobin A1C levels ordered for baseline reference Social Assessment will be completed and the Label Sewer will work with p atient and family to ensure a suitable and safe disposition Medication adjustment will be made as clinically indicated Usual Wellness Jainism/Preservation: - Start Trazodone 50 mg po QHS & 50 mg po QHS PRN between 10 PM & 2 AM for insomnia - Start Melatonin 5 mg po QHS to promote circadian rhythm - Start Austin-3 for brain health, reduce impulsivity, and as adjunctive treatment for mood disorder, continue upon discharge given overall benefits. - Start B1 prophylaxis with 200 mg po for 5 days The patient agreed on the treatment plan, understood the risk, benefit, alternative treatment, potential consequence of no treatment, and gave informed consent. Initial Certification Inpatient psych services: I certify that the inpatient psychiatric services are required for treatment that could reasonably be expected to improve the patient's condition. Estimated days: 3 Post hospital care: primary care provider, psychiatric provider Assessment and Plan - Patient Problems (1) Schizoaffective disorder, bipolar type Current Visit: Yes Status: Acute Medications and Allergies Allergies Allergy/AdvReac Type Severity Reaction Status Date / Time No Known Drug Allergies Allergy Unknown Verified 09/02/20 03:00 Home Medications Medication Instructions Recorded Confirmed Last Taken Type Atorvastatin 10 mg PO DAILY 09/02/20 09/02/20 Unknown History Divalproex ER [DepaKOTE ER] 500 mg PO BID 09/02/20 09/02/20 Unknown History LORazepam [Lorazepam] 2 mg PO TID PRN 09/02/20 09/02/20 Unknown History Levothyroxine [Synthroid] 75 mcg PO QAM 09/02/20 09/02/20 Unknown History Sodium Chloride 1 gm PO DAILY 09/02/20 09/02/20 Unknown History amLODIPine [Norvasc] 5 mg PO DAILY 09/02/20 09/02/20 Unknown History haloperidoL [Haldol] 5 mg PO BID 09/02/20 09/02/20 Unknown History risperiDONE [Risperdal] 3 mg PO BID 09/02/20 09/02/20 Unknown History Active Meds: Active Medications Amlodipine Besylate (Amlodipine 5 Mg Tab) 5 mg PO DAILY [facility] Last Admin: 09/14/20 10:14 Dose: 5 mg Documented by: Atorvastatin Calcium (Atorvastatin 10 Mg Tab) 10 mg PO QHS [facility] Last Admin: 09/14/20 21:04 Dose: 10 mg Documented by: Clonazepam (Clonazepam 0.5 Mg Tab) 0.5 mg PO TID [facility] Last Admin: 09/14/20 21:04 Dose: 0.5 mg Documented by: Divalproex Sodium (Divalproex Dr 500 Mg Tab) 500 mg PO TID [facility] Last Admin: 09/14/20 20:58 Dose: 500 mg Documented by: Haloperidol (Haloperidol 5 Mg Tab) 7.5 mg PO BID [facility] Last Admin: 09/14/20 21:04 Dose: 7.5 mg Documented by: Haloperidol Lactate (Haloperidol Lactate 5 Mg/1 Ml Inj) 5 mg IM Q6H PRN PRN Reason: Agitation Last Admin: 09/05/20 17:10 Dose: 5 mg Documented by: Ibuprofen (Ibuprofen 400 Mg Tab) 400 mg PO Q6H PRN PRN Reason: Pain, Mild (1-3) Levothyroxine Sodium (Levothyroxine 75 Mcg Tab) 75 mcg PO 0600 [facility] Last Admin: 09/15/20 05:50 Dose: 75 mcg Documented by: Lorazepam (Lorazepam 2 Mg/Ml Vial) 1 mg IM Q12HR PRN PRN Reason: Anxiety Last Admin: 09/05/20 17:26 Dose: 1 mg Documented by: Nicotine (Nicotine 21 Mg/24 Hr Patch) 21 mg TD QDAY [facility] Last Admin: 09/14/20 10:22 Dose: 21 mg Documented by: Sodium Chloride (Sodium Chloride 1 Gm Tab) 1 gm PO DAILY [facility] Last Admin: 09/14/20 10:14 Dose: 1 gm Documented by: Trazodone HCl (Trazodone 50 Mg Tab) 50 mg PO QHS [facility] Last Admin: 09/14/20 21:04 Dose: 50 mg Documented by: Results - Results Labs/Vitals: Laboratory Last Values WBC 8.1 K/mm3 (4.5-11.0) 09/04/20 06:03 RBC 4.32 M/mm3 (3.65-5.03) 09/04/20 06:03 Hgb 12.3 gm/dl (10.1-14.3) 09/04/20 06:03 Hct 36.6 % (30.3-42.9) 09/04/20 06:03 MCV 85 fl (79-97) 09/04/20 06:03 MCH 29 pg (28-32) 09/04/20 06:03 MCHC 34 % (30-34) 09/04/20 06:03 RDW 18.9 % (13.2-15.2) H 09/04/20 06:03 Plt Count 401 K/mm3 (140-440) 09/04/20 06:03 Lymph % (Auto) 24.7 % (13.4-35.0) 09/04/20 06:03 [place] % (Auto) 6.7 % (0.0-7.3) 09/04/20 06:03 Eos % (Auto) 4.0 % (0.0-4.3) 09/04/20 06:03 Baso % (Auto) 1.6 % (0.0-1.8) 09/04/20 06:03 Lymph # (Auto) 2.0 K/mm3 (1.2-5.4) 09/04/20 06:03 [place]son # (Auto) 0.5 K/mm3 (0.0-0.8) 09/04/20 06:03 Eos # (Auto) 0.3 K/mm3 (0.0-0.4) 09/04/20 06:03 Baso # (Auto) 0.1 K/mm3 (0.0-0.1) 09/04/20 06:03 Seg Neutrophils % 63.0 % (40.0-70.0) 09/04/20 06:03 Seg Neutrophils # 5.1 K/mm3 (1.8-7.7) 09/04/20 06:03 Sodium 130 mmol/L (137-145) L 09/04/20 06:03 Potassium 4.5 mmol/L (3.6-5.0) 09/04/20 06:03 Chloride 89.4 mmol/L (98-107) L 09/04/20 06:03 Carbon Dioxide 33 mmol/L (22-30) H 09/04/20 06:03 Anion Gap 12 mmol/L 09/04/20 06:03 BUN 15 mg/dL (7-17) 09/04/20 06:03 Creatinine 0.8 mg/dL (0.6-1.2) 09/04/20 06:03 Estimated GFR > 60 ml/min 09/04/20 06:03 BUN/Creatinine Ratio 19 % 09/04/20 06:03 Glucose 83 mg/dL (65-100) 09/04/20 06:03 POC Glucose 92 mg/dL (70-105) 09/02/20 04:57 Hemoglobin A1c 5.6 % (4-6) 09/04/20 06:03 Calcium 8.9 mg/dL (8.4-10.2) 09/04/20 06:03 Total Bilirubin 0.20 mg/dL (0.1-1.2) 09/04/20 06:03 AST 23 units/L (5-40) 09/04/20 06:03 ALT 16 units/L (7-56) 09/04/20 06:03 Alkaline Phosphatase 90 units/L (35-129) 09/04/20 06:03 Total Protein 7.3 g/dL (6.3-8.2) 09/04/20 06:03 Albumin 4.5 g/dL (3.9-5) 09/04/20 06:03 Albumin/Globulin Ratio 1.6 % 09/04/20 06:03 Triglycerides 82 mg/dL (2-149) 09/04/20 06:03 Cholesterol 189 mg/dL (50-199) 09/04/20 06:03 LDL Cholesterol Direct 98 mg/dL (50-130) 09/04/20 06:03 HDL Cholesterol 85 mg/dL (40-59) H 09/04/20 06:03 Cholesterol/HDL Ratio 2.22 % 09/04/20 06:03 TSH 100.000 mlU/mL (0.270-4.200) H 09/04/20 06:03 Valproic Acid 7.6 ug/mL (50-100) L 09/07/20 20:47 Last Vital Signs Temp 98.1 F 09/14/20 19:42 Pulse 71 09/14/20 10:20 Resp 17 09/14/20 19:42 BP 129/78 09/14/20 19:42 Pulse Ox 96 09/14/20 10:20
[2020-09-15] MEDS: clonazePAM 0.5 MG TAB PO SCH ×2 (08:09→15:07)
[2020-09-15] MEDS: DIVALPROEX DR 500 MG TAB PO SCH ×2 (08:09→15:07)
[2020-09-15] MEDS: HALOPERIDOL 5 MG TAB PO SCH (09:59)
[2020-09-15] MEDS: NICOTINE 21 MG/24 HR PATCH TD SCH (09:59)
[2020-09-15] MEDS: amLODIPine 5 MG TAB PO SCH (10:00)
[2020-09-15] MEDS: SODIUM CHLORIDE 1 GM TAB PO SCH (10:04)
--- NOTE | 2020-09-15 10:36 | Discharge Summary ---
Providers - Providers Date of Admission: 09/02/20 04:38 Date of discharge: 09/15/20 Attending physician: RAUL FARIA MD 09/02/20 03:00 Consult to Physician [CONS] Routine Comment: Consulting Provider: HUBER ALMAGUER Physician Instructions: Reason For Exam: Consulting & managing existing conditions Primary care physician: DIESEL ENGINE MECHANIC Hospitalization Reason for admission: Acute manic disorder Condition: Good Hospital course: The patient was provided inpatient psychiatric treatment with safe and supportive environment, group/individual therapy, psychiatric medication, medication adjustment, adverse effect monitor, medical evaluation, medical treatment, social service assessment, social support meeting, placement assessment and psycho-education. The patients mood, cognition, behavior, motivation, compliance to treatment and appreciation on family/social support are improved and stabilized. At the time of discharge, the patient had no suicidal ideas, no homicidal ideas, no aggressive thoughts, no endangering behavior and no debilitating adverse effects. The patient agreed on the treat ment plan, understood the risk, benefit, alternative treatment, potential consequence of no treatment, and gave informed consent. Over 35 minutes spent for discharge process, education and behavioral counselling. Disposition: DC-01 TO HOME OR SELFCARE Allergies/Adverse Reactions: Allergies No Known Drug Allergies Allergy (Verified 09/02/20 03:00) Unknown Vital Signs: Last Vital Signs Temp 98.1 F 09/14/20 19:42 Pulse 71 09/14/20 10:20 Resp 17 09/14/20 19:42 BP 129/78 09/14/20 19:42 Pulse Ox 96 09/14/20 10:20 Last Lab: Laboratory Last Values WBC 8.1 K/mm3 (4.5-11.0) 09/04/20 06:03 RBC 4.32 M/mm3 (3.65-5.03) 09/04/20 06:03 Hgb 12.3 gm/dl (10.1-14.3) 09/04/20 06:03 Hct 36.6 % (30.3-42.9) 09/04/20 06:03 MCV 85 fl (79-97) 09/04/20 06:03 MCH 29 pg (28-32) 09/04/20 06:03 MCHC 34 % (30-34) 09/04/20 06:03 RDW 18.9 % (13.2-15.2) H 09/04/20 06:03 Plt Count 401 K/mm3 (140-440) 09/04/20 06:03 Lymph % (Auto) 24.7 % (13.4-35.0) 09/04/20 06:03 [place] % (Auto) 6.7 % (0.0-7.3) 09/04/20 06:03 Eos % (Auto) 4.0 % (0.0-4.3) 09/04/20 06:03 Baso % (Auto) 1.6 % (0.0-1.8) 09/04/20 06:03 Lymph # (Auto) 2.0 K/mm3 (1.2-5.4) 09/04/20 06:03 [place] # (Auto) 0.5 K/mm3 (0.0-0.8) 09/04/20 06:03 Eos # (Auto) 0.3 K/mm3 (0.0-0.4) 09/04/20 06:03 Baso # (Auto) 0.1 K/mm3 (0.0-0.1) 09/04/20 06:03 Seg Neutrophils % 63.0 % (40.0-70.0) 09/04/20 06:03 Seg Neutrophils # 5.1 K/mm3 (1.8-7.7) 09/04/20 06:03 Sodium 130 mmol/L (137-145) L 09/04/20 06:03 Potassium 4.5 mmol/L (3.6-5.0) 09/04/20 06:03 Chloride 89.4 mmol/L (98-107) L 09/04/20 06:03 Carbon Dioxide 33 mmol/L (22-30) H 09/04/20 06:03 Anion Gap 12 mmol/L 09/04/20 06:03 BUN 15 mg/dL (7-17) 09/04/20 06:03 Creatinine 0.8 mg/dL (0.6-1.2) 09/04/20 06:03 Estimated GFR > 60 ml/min 09/04/20 06:03 BUN/Creatinine Ratio 19 % 09/04/20 06:03 Glucose 83 mg/dL (65-100) 09/04/20 06:03 POC Glucose 92 mg/dL (70-105) 09/02/20 04:57 Hemoglobin A1c 5.6 % (4-6) 09/04/20 06:03 Calcium 8.9 mg/dL (8.4-10.2) 09/04/20 06:03 Total Bilirubin 0.20 mg/dL (0.1-1.2) 09/04/20 06:03 AST 23 units/L (5-40) 09/04/20 06:03 ALT 16 units/L (7-56) 09/04/20 06:03 Alkaline Phosphatase 90 units/L (35-129) 09/04/20 06:03 Total Protein 7.3 g/dL (6.3-8.2) 09/04/20 06:03 Albumin 4.5 g/dL (3.9-5) 09/04/20 06:03 Albumin/Globulin Ratio 1.6 % 09/04/20 06:03 Triglycerides 82 mg/dL (2-149) 09/04/20 06:03 Cholesterol 189 mg/dL (50-199) 09/04/20 06:03 LDL Cholesterol Direct 98 mg/dL (50-130) 09/04/20 06:03 HDL Cholesterol 85 mg/dL (40-59) H 09/04/20 06:03 Cholesterol/HDL Ratio 2.22 % 09/04/20 06:03 TSH 100.000 mlU/mL (0.270-4.200) H 09/04/20 06:03 Valproic Acid 7.6 ug/mL (50-100) L 09/07/20 20:47 - Discharge Diagnoses (1) Schizoaffective disorder, bipolar type Status: Acute Core Measure Documentation - Palliative Care Palliative Care/ Comfort Measures: Not Applicable - Core Measures Any of the following diagnoses?: none Exam - Constitutional Vitals: Temp Pulse Resp BP Pulse Ox 98.1 F 71 17 129/78 96 09/14/20 19:42 09/14/20 10:20 09/14/20 19:42 09/14/20 19:42 09/14/20 10:20 General appearance: Present: no acute distress - EENT Eyes: Present: PERRL, EOM intact ENT: hearing intact, clear oral mucosa - Neck Neck: Present: supple, normal ROM - Respiratory Respiratory effort: normal - Abdominal Female genitourinary: Present: deferred Plan Care Plan Goals: Goals: Maintain good and stable mental health. Plan of Treatment: The patient should be compliant with medications, not to use drugs and not to drink alcohol. The patient understands that if suicidal ideas, homicidal ideas, or any end angering thoughts arise, the patient should immediately seek for emergent assistance including but not limited to crisis hot line and emergency room. Follow up with outpatient Psychiatrist and PCP within 7 - 14 days of discharge. Follow up with: PRIMARY CARE,MD [Primary Care Provider] - 7 Days Prescriptions: traZODone [Desyrel] 50 mg PO QHS #[address] [Depakote Dr] 500 mg PO TID #90 tablet haloperidoL [Haldol] 7.5 mg PO BID #60 tablet clonazePAM [KlonoPIN] 0.5 mg PO BID PRN #60 tablet PRN Reason: Anxiety
== END 2020-09-15 19:25 | DRG 885 ==
LOC: UNDOADMIN 02:16 → 3A 02:16 → 5A 04:38
PROVIDERS: ADMIT Psychiatry & Neurology Psychiatry; ATTEND Psychiatry & Neurology Psychiatry
DX: F25.0 Schizoaffective disorder, bipolar type (principal); E87.1 Hypo-osmolality and hyponatremia; I10 Essential (primary) hypertension; E78.5 Hyperlipidemia, unspecified; E03.9 Hypothyroidism, unspecified; Z91.19 Patient's noncompliance with other medical treatment and regimen; Z59.0 Homelessness; Z79.899 Other long term (current) drug therapy; Z79.891 Long term (current) use of opiate analgesic; Z79.01 Long term (current) use of anticoagulants
CPT/HCPCS: 36415; 80053; 80061; 80164; 82962; 83036; 84443; 85025; G0378; A9270-GY; J1630; J2060; J7050